=== PATIENT | female | born 1950 | race Caucasian/White ===

== ENCOUNTER 2016-08-29 12:25 | Emergency (ER) | payer MEDICARE, OTHER ==
[2016-08-29] MEDS ORDERED: Sodium Chloride 0.9% 10 ML Syringe FLUSH PRN (12:35)
[2016-08-29] MEDS ORDERED: Acetaminophen 325 MG Tab PO ONE (14:10)
[2016-08-29] MEDS ORDERED: LORazepam 0.5 MG Tab PO ONE (14:10)
--- NOTE | 2016-08-29 15:05 | CR ---
Chest: Portable view of the chest was obtained. Comparison: Previous chest x-ray of 01/03/09. Heart size and mediastinum are normal. Lungs are clear. Bony structures are grossly intact. Impression: 1. Nothing acute is identified on portable chest x-ray. Diagnostic code #1
--- NOTE | 2016-08-29 15:36 | EDM.PDOC ---
ED HISTORY OF PRESENT ILLNESS - General Chief Complaint: Chest Pain Stated Complaint: CHEST PAIN Time Seen by Provider: 08/29/16 12:35 Source of Information: Reports: Patient, RN notes reviewed, Other (spouse) - History of Present Illness INITIAL COMMENTS - FREE TEXT/NARRATIVE: 66 year old female comes in with sharp shooting pains L lateral chest. This started last evening, much more frequent this morning. These only last for a few seconds but occurring quite frequently today, up to several times a minutes. No anterior chest pressure or heaviness. No nauea, vomting, diaphoresis, dizziness, Dyspnea or other unsual sx. Hx of mult. stents. On aspirin and plavix. Admits she is "under a lot of stress", does not exercise regularly. - Related Data Allergies/ADRs: Allergies Allergy/AdvReac Type Severity Reaction Status Date / Time atorvastatin calcium Allergy Joint Pain Verified 08/29/16 12:50 [From Lipitor] fenofibrate nanocrystallized Allergy Joint Pain Verified 08/29/16 12:50 [From Tricor] fenofibrate,micronized Allergy Joint Pain Verified 08/29/16 12:50 [From Tricor] niacin Allergy Respiratory Verified 08/29/16 12:50 [From Niaspan Distress Extended-Release] rosuvastatin calcium Allergy Joint Pain Verified 08/29/16 12:50 [From Crestor] simvastatin [From Zocor] Allergy Joint Pain Verified 08/29/16 12:50 Home Meds: Home Meds Aspirin 81 mg PO DAILY 07/08/15 [History] Levothyroxine [Synthroid] 75 mcg PO DAILY 07/08/15 [History] Sertraline [Zoloft] 75 mg PO DAILY 07/08/15 [History] Clopidogrel [Plavix] 75 mg PO DAILY 08/10/15 [History] Ezetimibe [Zetia] 10 mg PO DAILY 08/10/15 [History] Nitroglycerin 0.4 mg SL ASDIRECTED PRN 08/10/15 [History] Nebivolol [Bystolic] 5 mg PO DAILY 08/29/16 [History] Pravastatin [Pravachol] 40 mg PO DAILY 08/29/16 [History] Past Medical History Cardiovascular History: Reports: CAD, High cholesterol, Hypertension Respiratory History: Reports: None Gastrointestinal History: Reports: None Genitourinary History: Reports: None 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 OB/BYN History: grav 2 para2 Musculoskeletal History: Reports: None Neurological History: Reports: CVA Other Neuro History: 2004 Psychiatric History: Reports: Depression Endocrine/Metabolic History: Reports: Hypothyroidism Hematologic History: Reports: None Immunologic History: Reports: None Dermatologic History: Reports: None - Infectious Disease History Infectious Disease History: Reports: None - Past Surgical History Cardiovascular Surgical History: Reports: Coronary artery stent Other Cardiovascular Surgeries/Procedures: 4 stents Female Surgical History: Reports: Hysterectomy Oncologic Surgical History: Reports: Lumpectomy Social & Family History - Family History Family Medical History: Noncontributory - Tobacco Use Smoking Status *Q: Never Smoker - Caffeine Use Caffeine Use: Reports: Coffee - Recreational Drug Use Recreational Drug Use: No - Living Situation & Occupation Living situation: Reports: with spouse, with family Occupation: retired ED ROS GENERAL - Review of Systems Review Of Systems: See Below Constitutional: Denies: fever, chills, diaphoresis HEENT: Denies: Sinus problem, Throat pain, Vision change Respiratory: Denies: Shortness of Breath, Wheezing, Pleuritic Chest Pain, Cough Cardiovascular: Reports: Chest pain. Denies: Lightheadedness, Palpitations GI/Abdominal: Denies: Abdominal pain, Nausea, Vomiting Musculoskeletal: Denies: neck pain, shoulder pain, arm pain, back pain Skin: Reports: no symptoms Neurological: Reports: No Symptoms ED EXAM, GENERAL - Physical Exam Exam: See Below General Appearance: alert, anxious Eye Exam: bilateral eye: PERRL Nose: normal inspection Throat/Mouth: Normal inspection, Normal oropharynx Head: atraumatic. No: facial swelling Neck: supple, full range of motion, other (no JVD) Respiratory/Chest: no respiratory distress, lungs clear, normal breath sounds Cardiovascular: regular rate, rhythm GI/Abdominal: soft, non tender. No: guarding Back Exam: No: CVA tenderness (L), CVA tenderness (R) Extremities: normal inspection, normal range of motion. No: pedal edema, leg pain Neurological: alert, oriented, no motor/sensory deficits Skin Exam: Warm, Dry, Normal color EKG INTERPRETATION EKG Date: 08/29/16 [place]: normal P-wave: present QRS: other (q waves lead III) Course - Vital Signs Last Recorded V/S: Last Vital Signs Temp 97.8 F 08/29/16 12:33 Pulse 67 08/29/16 12:33 Resp 14 08/29/16 12:33 BP 139/86 08/29/16 12:33 Pulse Ox 98 08/29/16 12:33 - Orders/Labs/Meds Orders: Active Orders 24 hr Category Date Time Status EKG 12 Lead [EKG Documentation Completion] [RC] STAT Care 08/29/16 12:36 Active Peripheral IV Care [RC] . DIRECTED Care 08/29/16 12:36 Active Sodium Chloride 0.9% [Saline Flush] Med 08/29/16 12:35 Active 10 ml FLUSH ASDIRECTED PRN Peripheral IV Insertion Adult [OM.PC] Stat Oth 08/29/16 12:36 Ordered Medication Orders Sodium Chloride (Saline Flush) 10 ml FLUSH ASDIRECTED PRN PRN Reason: Keep Vein Open Last Admin: 08/29/16 13:16 Dose: 10 ml Labs: Laboratory Tests 08/29/16 08/29/16 08/29/16 Range/Units 12:34 12:34 14:23 WBC 8.82 (3.98-10.04) K/mm3 RBC 4.83 (3.98-5.22) M/mm3 Hgb 14.0 (11.2-15.7) gm/L Hct 42.3 (34.1-44.9) % MCV 87.6 (79.4-94.8) fl MCH 29.0 (25.6-32.2) pg MCHC 33.1 (32.2-35.5) g/dl RDW Std Deviation 42.2 (36.4-46.3) fL Plt Count 272 (182-369) K/mm3 MPV 9.1 L (9.4-12.3) fl Neut % (Auto) 52.7 (34.0-71.1) % Lymph % (Auto) 38.3 (19.3-51.7) % [place] % (Auto) 5.2 (4.7-12.5) % Eos % (Auto) 2.9 (0.7-5.8) Baso % (Auto) 0.8 (0.1-1.2) % Neut # 4.64 (1.56-6.13) K/mm3 Lymph # 3.38 (1.18-3.74) K/mm3 [place] # 0.46 H (0.24-0.36) K/mm3 Eos # 0.26 (0.04-0.36) K/mm3 Baso # 0.07 (0.01-0.08) K/mm3 Sodium 140 (136-145) mEq/L Potassium 4.9 (3.5-5.1) mEq/L Chloride 107 (98-107) mEq/L Carbon Dioxide 26 (21-32) mEq/L Anion Gap 11.9 (5-15) BUN 17 (7-18) mg/dL Creatinine 0.9 (0.55-1.02) mg/dL Est Cr Clr Drug Dosing 51.55 mL/min Estimated GFR (MDRD) > 60 (>60) mL/min BUN/Creatinine Ratio 18.9 H (14-18) Glucose 125 H (80-115) mg/dL Calcium 8.6 (8.5-10.1) mg/dL Total Bilirubin 0.3 (0.2-1.0) mg/dL AST 27 (15-37) U/L ALT 30 (14-59) U/L Alkaline Phosphatase 80 (46-116) U/L Troponin I < 0.017 < 0.017 (0.00-0.056) ng/mL Total Protein 7.4 (6.4-8.2) g/dl Albumin 3.6 (3.4-5.0) g/dl Globulin 3.8 gm/dL Albumin/Globulin Ratio 1.0 (1-2) Meds: Medications Generic Name Dose Route Start Last Admin Trade Name Freq PRN Reason Stop Dose Admin Sodium Chloride 10 ml 08/29/16 12:35 08/29/16 13:16 Saline Flush FLUSH 10 ml ASDIRECTED PRN Administration Keep Vein Open Discontinued Medications Generic Name Dose Route Start Last Admin Trade Name Freq PRN Reason Stop Dose Admin Acetaminophen 975 mg 08/29/16 14:10 08/29/16 14:22 Tylenol PO 08/29/16 14:11 975 mg NOW ONE Administration Lorazepam 0.5 mg 08/29/16 14:10 08/29/16 14:23 Ativan PO 08/29/16 14:11 0.5 mg ONETIME ONE Administration - Re-Assessments/Exams Free Text/Narrative Re-Assessment/Exam: 08/29/16 15:49 first trop was neg. Other labs and CXR normal. No ectopy. EKG did not show acute findings. Sx very suggestive for a muscle or nerve etiology. We gave tylenol and ativan and that really helped her to where sx were almost gone at time of discharge. Discharge instr. as documented. Departure - Departure Time of Disposition: 15:36 Disposition: Home, Self-Care 01 Condition: fair Clinical Impression: Atypical chest pain Instructions: Nonspecific Chest Pain Referrals: Rina Park MD [Primary Care Provider] - Forms: ED Department Discharge Additional Instructions: Your heart and lungs have checked out well today. You have been given ativan 0.5 mg and tylenol 975 mg while here in the ED. Continue tylenol or acetaminophen 2 to 3 times daily for the next few days. Ativan 0.25 mg twice daily for the next few days. Follow up with your regular medical provider as needed. Exercise 4 to 5 times per week if possible at least 30 minutes at a time. Consider the walking [place] the [place] at the [facility] which would not be stressful for your knee. Return to ED as needed. - My Orders Last 24 Hours: My Active Orders 08/29/16 12:35 Sodium Chloride 0.9% [Saline Flush] 10 ml FLUSH ASDIRECTED PRN 08/29/16 12:36 EKG 12 Lead [EKG Documentation Completion] [RC] STAT Peripheral IV Care [RC] . DIRECTED Peripheral IV Insertion Adult [OM.PC] Stat - Assessment/Plan Last 24 Hours: My Active Orders 08/29/16 12:35 Sodium Chloride 0.9% [Saline Flush] 10 ml FLUSH ASDIRECTED PRN 08/29/16 12:36 EKG 12 Lead [EKG Documentation Completion] [RC] STAT Peripheral IV Care [RC] . DIRECTED Peripheral IV Insertion Adult [OM.PC] Stat
[2016-08-29 16:02] VITALS: BP 133/92
== END 2016-08-29 15:47 | disposition home or self-care (01) ==
LOC: JD.ED 12:25
DX: R07.89 Other chest pain (principal); I10 Essential (primary) hypertension; E78.00 Pure hypercholesterolemia, unspecified; I25.10 Atherosclerotic heart disease of native coronary artery without angina pectoris; E03.9 Hypothyroidism, unspecified; Z95.5 Presence of coronary angioplasty implant and graft; Z90.710 Acquired absence of both cervix and uterus; Z98.890 Other specified postprocedural states; Z88.8 Allergy status to other drugs, medicaments and biological substances; Z79.82 Long term (current) use of aspirin; Z79.02 Long term (current) use of antithrombotics/antiplatelets; Z79.899 Other long term (current) drug therapy
CPT/HCPCS: 36415; 71010; 80053; 84484; 85025; 93005; 99285; A9270; J7050

== ENCOUNTER 2018-09-19 14:22 | Inpatient (IN) | payer MEDICARE, OTHER ==
--- NOTE | 2018-09-19 14:39 | EDM.PDOC ---
ED HPI GENERAL MEDICAL PROBLEM - General Chief Complaint: Gastrointestinal Problem Stated Complaint: [facility] Time Seen by Provider: 09/19/18 14:36 Source of Information: Reports: Patient History Limitations: Reports: No Limitations - History of Present Illness INITIAL COMMENTS - FREE TEXT/NARRATIVE: 68-year-old female presents to the ED with diarrhea every half hour since 0730 hrs. this morning. Associated with diffuse abdominal cramping pain. Is to stools were definitely bright red in color without any stool. She did look at the first several and therefore not sure if they contained bright red blood as well. He feels lightheaded dizzy and weak. She feels nauseated and hasn't eaten at all today. Patient is on aspirin and Plavix after having a massive myocardial infarction 3 years ago. Patient has had a colonoscopy within the last 5 years and one polyp was resected and found to be noncancerous. He has no history of diverticulitis. No fever or chills. She felt perfectly fine yesterday. Onset: Today Onset Date: 09/19/18 Onset Time: 07:30 Duration: Hour(s): Location: Reports: Other (Passing bright red blood per rectum about every half an hour since 0730 hrs. this morning) Quality: Reports: Other Severity: Moderate (Diffuse abdominal cramping pain) Improves with: Reports: None Worsens with: Reports: None Context: Denies: Activity, Exercise, Lifting, Sick Contact, Trauma, Other Associated Symptoms: Reports: Loss of Appetite, Malaise, Nausea/Vomiting, Weakness. Denies: Confusion, Chest Pain, Cough, cough w sputum, Diaphoresis, Fever/Chills, Headaches, Rash, Seizure, Shortness of Breath, Syncope Treatments LINEN CLERK: Reports: Other (see below) (9) Abdominal Pain Score (Numeric/FACES): 8 - Related Data Allergies Allergy/AdvReac Type Severity Reaction Status Date / Time atorvastatin calcium Allergy Joint Pain Verified 09/19/18 14:34 [From Lipitor] fenofibrate nanocrystallized Allergy Joint Pain Verified 09/19/18 14:34 [From Tricor] fenofibrate,micronized Allergy Joint Pain Verified 09/19/18 14:34 [From Tricor] niacin Allergy Respiratory Verified 09/19/18 14:34 [From Niaspan Distress Extended-Release] rosuvastatin calcium Allergy Joint Pain Verified 09/19/18 14:34 [From Crestor] simvastatin [From Zocor] Allergy Joint Pain Verified 09/19/18 14:34 Home Meds: Home Meds Aspirin 81 mg PO DAILY 07/08/15 [History] Levothyroxine [Synthroid] 75 mcg PO DAILY 07/08/15 [History] Clopidogrel [Plavix] 75 mg PO DAILY 08/10/15 [History] Ezetimibe [Zetia] 10 mg PO DAILY 08/10/15 [History] Nitroglycerin 0.4 mg SL ASDIRECTED PRN 08/10/15 [History] Nebivolol [Bystolic] 5 mg PO DAILY 08/29/16 [History] Pravastatin [Pravachol] 40 mg PO DAILY 08/29/16 [History] Famotidine 20 mg PO DAILY 09/19/18 [History] Pantoprazole [ProTONIX] 40 mg PO DAILY 09/19/18 [History] Past Medical History Cardiovascular History: Reports: CAD, High Cholesterol, Hypertension, Stents (3 stents were placed the first heart attack in the last stent was placed in June 2015 in the right coronary artery. She remains on Plavix and baby aspirin daily.) Respiratory History: Reports: None Gastrointestinal History: Reports: None Genitourinary History: Reports: None ACCORDION TUNER History: Reports: Other ACCORDION TUNER History: grav 2 para2 Musculoskeletal History: Reports: None Neurological History: Reports: CVA Other Neuro History: 2004 Psychiatric History: Reports: Depression Endocrine/Metabolic History: Reports: Hypothyroidism Hematologic History: Reports: None Immunologic History: Reports: None Dermatologic History: Reports: None - Infectious Disease History Infectious Disease History: Reports: None - Past Surgical History Cardiovascular Surgical History: Reports: Coronary Artery Stent Social & Family History - Family History Family Medical History: Noncontributory - Caffeine Use Caffeine Use: Reports: Coffee - Living Situation & Occupation Living situation: Reports: with Spouse, with Family Occupation: Retired ED ROS GENERAL - Review of Systems Review Of Systems: See Below Constitutional: Reports: Chills, Malaise, Weakness, Fatigue, Decreased Appetite (Has not eaten at all today.), Weight Loss HEENT: Reports: No Symptoms Respiratory: Reports: Shortness of Breath. Denies: Wheezing, Pleuritic Chest Pain (Perhaps a little more short of breath than normal), Cough, Sputum, Hemoptysis, Other Cardiovascular: Reports: Blood Pressure Problem, Dyspnea on Exertion, Lightheadedness. Denies: Chest Pain, Claudication, Edema, Orthopnea (Usually runs a bit on the high side) Endocrine: Reports: No Symptoms GI/Abdominal: Reports: Abdominal Pain (Diffuse and dull cramping pain particularly infraumbilical.), Decreased Appetite, Hematochezia, Other (Passing bright red blood per rectum.). Denies: Constipation, Distension, Flatus, Hematemesis : Reports: No Symptoms Musculoskeletal: Reports: Joint Pain Skin: Reports: Bruising (Knees hips low back and neck at times sometimes shoulders as well bruises easily due to being on Plavix and aspirin) Neurological: Reports: Dizziness (Dizziness this morning getting worse) Psychiatric: Reports: No Symptoms ( with every diarrhea stool) Hematologic/Lymphatic: Reports: No Symptoms Immunologic: Reports: No Symptoms ED EXAM, GI/ABD - Physical Exam Exam: See Below Exam Limited By: No Limitations General Appearance: Alert, WD/WN, Mild Distress, Other (Mildly pallid.) Eyes: Right: Normal Appearance (Blood for margins are mildly pallid.) Ears: Normal TMs Throat/Mouth: Normal Inspection, Normal Lips, Normal Oropharynx, Other (Tongue is mildly dry) Head: Atraumatic, Normocephalic Neck: Normal Inspection, Supple, Non-Tender, Full Range of Motion. No: Lymphadenopathy (L), Lymphadenopathy (R) Respiratory/Chest: No Respiratory Distress, Lungs Clear, Normal Breath Sounds, Chest Non-Tender Cardiovascular: Normal Peripheral Pulses, Regular Rate, Rhythm, No Edema, No Gallop, No Murmur, No Rub GI/Abdominal Exam: Guarding (She is tender throughout the left hemiabdomen particularly left lower quadrant with minimal guarding), Tender, Abnormal Bowel Sounds (Bowel sounds are hyperactive throughout.), Other (She has no history of diverticulitis). No: Rigid, Rebound ( lower quadrant) Rectal (Female) Exam: Other (Bone a weightbearing red blood per rectum no stool) Back Exam: Normal Inspection, Full Range of Motion. No: CVA Tenderness (L), CVA Tenderness (R) Extremities: Normal Inspection, Normal Range of Motion, Other (No changes in her knees from arthritis.) Neurological: Alert, Oriented, CN II-XII Intact, Normal Cognition Psychiatric: Normal Affect, Normal Mood Skin Exam: Warm, Dry, Intact, Pallor (Mild pallor) EKG INTERPRETATION EKG Date: 09/19/18 Time: 15:55 Rhythm: Other (Sinus bradycardia at 59/m.) Rate (Beats/Min): 59 [place]: LAD-Left [place] Deviation (-8) P-Wave: Present QRS: Other (Q-wave in lead 3 and near Q-wave in aVF compatible with an old inferior wall myocardial infarction. His decreased voltage throughout the limb leads.) QT: Prolonged (QTC is mildly prolonged.) EKG Interpretation Comments: Abnormal ECG Course - Vital Signs Last Recorded V/S: Last Vital Signs Temp 36.9 C 09/19/18 15:44 Pulse 61 09/19/18 15:44 Resp 16 09/19/18 15:44 BP 138/74 09/19/18 15:44 Pulse Ox 98 09/19/18 15:44 Orthostatic Blood Pressure [ 110/70 Standing] Orthostatic Blood Pressure [ 102/86 Sitting] Orthostatic Blood Pressure [ 139/79 Supine] - Orders/Labs/Meds Orders: Active Orders 24 hr Category Date Time Status EKG Documentation Completion [RC] STAT Care 09/19/18 15:31 Active Orthostatic Vital Signs [RC] ASDIRECTED Care 09/19/18 14:37 Active C DIFFICILE BY PCR W/NAP1 [MOLEC] Stat Lab 09/19/18 18:56 Ordered CULTURE STOOL + SHIGATOX [RM] Stat Lab 09/19/18 18:56 Ordered PATIENT RETYPE [BBK] Routine Lab 09/19/18 15:38 Ordered WBC, STOOL [OP] Stat Lab 09/19/18 18:56 Ordered Sodium Chloride 0.9% [Normal Saline] 1,000 ml Med 09/19/18 14:45 Active IV ASDIRECTED metroNIDAZOLE/Normal Saline [Flagyl 500 MG in NS 100 ML Med 09/19/18 19:01 Ordered ] 500 mg Premix Bag 1 bag IV ONETIME Isolation [COMM] Stat Oth 09/19/18 18:56 Ordered Medication Orders Sodium Chloride (Normal Saline) 1,000 mls @ 200 mls/hr IV ASDIRECTED JOSETTE Last Infusion: 09/19/18 14:53 Dose: 500 mls/hr Admin: 09/19/18 14:53 Dose: 200 mls/hr Labs: Laboratory Tests 09/19/18 09/19/1809/19/19 Range/Units 14:47 14:47 14:47 WBC 12.57 H (3.98-10.04) K/mm3 RBC 5.02 (3.98-5.22) M/mm3 Hgb 14.1 (11.2-15.7) gm/L Hct 43.3 (34.1-44.9) % MCV 86.3 (79.4-94.8) fl MCH 28.1 (25.6-32.2) pg MCHC 32.6 (32.2-35.5) g/dl RDW Std Deviation 42.0 (36.4-46.3) fL Plt Count 316 (182-369) K/mm3 MPV 9.1 L (9.4-12.3) fl Neutrophils % (Manual) 81 H (40-60) % Band Neutrophils % 0 (0-10) % Lymphocytes % (Manual) 17 L (20-40) % Atypical Lymphs % 0 % Monocytes % (Manual) 2 (2-10) % Eosinophils % (Manual) 0 L (0.7-5.8) % Basophils % (Manual) 0 L (0.1-1.2) Platelet Estimate Adequate RBC Morph Comment Normal PT 11.5 (9.5-12.1) SECONDS INR 1.06 APTT (24-31) SECONDS Sodium 139 (136-145) mEq/L Potassium 4.4 (3.5-5.1) mEq/L Chloride 105 (98-107) mEq/L Carbon Dioxide 24 (21-32) mEq/L Anion Gap 14.4 (5-15) BUN 24 H (7-18) mg/dL Creatinine 1.0 (0.55-1.02) mg/dL Est Cr Clr Drug Dosing TNP Estimated GFR (MDRD) 55 (>60) mL/min BUN/Creatinine Ratio 24.0 H (14-18) Glucose 115 (80-115) mg/dL Calcium 9.3 (8.5-10.1) mg/dL Magnesium 2.1 (1.8-2.4) mg/dl Total Bilirubin 0.4 (0.2-1.0) mg/dL AST 19 (15-37) U/L ALT 40 (14-59) U/L Alkaline Phosphatase 94 (46-116) U/L NT-Pro-B Natriuret Pep (0-125) pg/mL Total Protein 7.9 (6.4-8.2) g/dl Albumin 3.8 (3.4-5.0) g/dl Globulin 4.1 gm/dL Albumin/Globulin Ratio 0.9 L (1-2) Amylase 100 (25-115) U/L H. pylori IgG Antibody (NEGATIVE) Blood Type Gel Antibody Screen 09/19/18 09/19/18 09/19/18 Range/Units 14:47 14:47 14:47 WBC (3.98-10.04) K/mm3 RBC (3.98-5.22) M/mm3 Hgb (11.2-15.7) gm/L Hct (34.1-44.9) % MCV (79.4-94.8) fl MCH (25.6-32.2) pg MCHC (32.2-35.5) g/dl RDW Std Deviation (36.4-46.3) fL Plt Count (182-369) K/mm3 MPV (9.4-12.3) fl Neutrophils % (Manual) (40-60) % Band Neutrophils % (0-10) % Lymphocytes % (Manual) (20-40) % Atypical Lymphs % % Monocytes % (Manual) (2-10) % Eosinophils % (Manual) (0.7-5.8) % Basophils % (Manual) (0.1-1.2) Platelet Estimate RBC Morph Comment PT (9.5-12.1) SECONDS INR APTT 24 (24-31) SECONDS Sodium (136-145) mEq/L Potassium (3.5-5.1) mEq/L Chloride (98-107) mEq/L Carbon Dioxide (21-32) mEq/L Anion Gap (5-15) BUN (7-18) mg/dL Creatinine (0.55-1.02) mg/dL Est Cr Clr Drug Dosing Estimated GFR (MDRD) (>60) mL/min BUN/Creatinine Ratio (14-18) Glucose (80-115) mg/dL Calcium (8.5-10.1) mg/dL Magnesium (1.8-2.4) mg/dl Total Bilirubin (0.2-1.0) mg/dL AST (15-37) U/L ALT (14-59) U/L Alkaline Phosphatase (46-116) U/L NT-Pro-B Natriuret Pep 98 (0-125) pg/mL Total Protein (6.4-8.2) g/dl Albumin (3.4-5.0) g/dl Globulin gm/dL Albumin/Globulin Ratio (1-2) Amylase (25-115) U/L H. pylori IgG Antibody (NEGATIVE) Blood Type A POSITIVE Gel Antibody Screen Negative 09/19/18 Range/Units 14:47 WBC (3.98-10.04) K/mm3 RBC (3.98-5.22) M/mm3 Hgb (11.2-15.7) gm/L Hct (34.1-44.9) % MCV (79.4-94.8) fl MCH (25.6-32.2) pg MCHC (32.2-35.5) g/dl RDW Std Deviation (36.4-46.3) fL Plt Count (182-369) K/mm3 MPV (9.4-12.3) fl Neutrophils % (Manual) (40-60) % Band Neutrophils % (0-10) % Lymphocytes % (Manual) (20-40) % Atypical Lymphs % % Monocytes % (Manual) (2-10) % Eosinophils % (Manual) (0.7-5.8) % Basophils % (Manual) (0.1-1.2) Platelet Estimate RBC Morph Comment PT (9.5-12.1) SECONDS INR APTT (24-31) SECONDS Sodium (136-145) mEq/L Potassium (3.5-5.1) mEq/L Chloride (98-107) mEq/L Carbon Dioxide (21-32) mEq/L Anion Gap (5-15) BUN (7-18) mg/dL Creatinine (0.55-1.02) mg/dL Est Cr Clr Drug Dosing Estimated GFR (MDRD) (>60) mL/min BUN/Creatinine Ratio (14-18) Glucose (80-115) mg/dL Calcium (8.5-10.1) mg/dL Magnesium (1.8-2.4) mg/dl Total Bilirubin (0.2-1.0) mg/dL AST (15-37) U/L ALT (14-59) U/L Alkaline Phosphatase (46-116) U/L NT-Pro-B Natriuret Pep (0-125) pg/mL Total Protein (6.4-8.2) g/dl Albumin (3.4-5.0) g/dl Globulin gm/dL Albumin/Globulin Ratio (1-2) Amylase (25-115) U/L H. pylori IgG Antibody Negative (NEGATIVE) Blood Type Gel Antibody Screen Meds: Medications Generic Name Dose Route Start Last Admin Trade Name Freq PRN Reason Stop Dose Admin Sodium Chloride 1,000 mls @ 200 mls/hr 09/19/18 14:45 09/19/18 14:53 Normal Saline IV 500 mls/hr ASDIRECTED JOSETTE Infusion Discontinued Medications Generic Name Dose Route Start Last Admin Trade Name Freq PRN Reason Stop Dose Admin Diatrizoate Meglum/Diatrizoate Sod 120 ml 09/19/18 17:02 09/19/18 18:01 Gastrografin 37% PO 09/19/18 17:03 90 ml ONETIME ONE Administration Hydromorphone HCl 0.5 mg 09/19/18 16:10 09/19/18 16:17 Dilaudid IVPUSH 09/19/18 16:11 0.5 mg ONETIME ONE Administration Iopamidol 100 ml 09/19/18 17:02 09/19/18 18:01 Isovue-370 (76%) IV 09/19/18 17:03 100 ml ONETIME ONE Administration Lidocaine HCl 10 ml 09/19/18 16:11 09/19/18 16:19 Xylocaine 2% Jelly MUCMEM 09/19/18 16:12 10 ml ONETIME ONE Administration Ondansetron HCl 4 mg 09/19/18 15:55 09/19/18 16:16 Zofran IVPUSH 09/19/18 15:56 4 mg ONETIME ONE Administration - Radiology Interpretation Free Text/Narrative:: 68-year-old female presents to the ED with bright red blood per rectum probably every half-hour since 0730 hrs. this morning. She started to feel very lightheaded dizzy and weak. She is orthostatic on exam. She has also pallid on exam. Patient is currently on Plavix and baby aspirin daily because she has extensive history of coronary disease with 4 stents placed in total at 2 different settings. Patient has no chest pain. She showed pictures of blood in the toilet and there is no stool mixed with it. Consent obtained for blood transfusion if so needed. Routine labs to be done as well as an ECG. He is afebrile and therefore I will not CT her abdomen this time. She did have a colonoscopy they believe in 2014 with 1 polyp resected at that time which was benign. - Re-Assessments/Exams Free Text/Narrative Re-Assessment/Exam: 09/19/18 15:37 Labs reveal a slightly elevated white count at 12.57. Differential is 81% neutrophils and no band cells hemoglobin is 14.1 hematocrit is 43.3. MCV is 86.3. Platelet counts 316,000. PT is 11.5 with an INR 1.06. Sodium 139 with potassium of 4.4. Chloride 105 with a bicarbonate 24. B1 is 24 with a creatinine of 1.0. GFR is 55. Glucose is 1:15. Calcium is 9.3. Magnesium is 2.1. Liver function is normal. BNP is 98. Total protein 7.9 with an albumin fraction of 3.8. Amylase is 100 09/19/18 16:16 I discussed the case with Dr. Cm --malt specifications control assistant in [facility] and he feels that CT of the abdomen is in order to rule out diverticulitis or other inflammatory conditions to cause her acute bleeding. I will also go ahead with a sigmoidoscopy to rule out internal hemorrhoid bleeding. Consent will be obtained for rigid sigmoidoscopy. 09/19/18 17:54 rigid sigmoidoscopy performed up to 15 cm and there is dried blood as well as some losing mucus see blood coming from above this level. There is no internal hemorrhoids or fissure to be causing acute rectal bleeding. ECT scan will be done shortly. 09/19/18 18:40 CT of the abdomen and pelvis has been completed with oral and IV contrast. Portion of the visualized lung bases are clear. Moderately large hiatal hernia is appreciated. Contrast is seen within the distal esophagus compatible with reflux. There is fatty infiltration within the liver. No focal abnormality is appreciated within the liver. Spleen appears normal in appearance. Adrenal glands show no nodules. Pancreas appears within normal limits area gallbladder contains no calcified gallstones. Kidneys show symmetric contrast enhancement without any hydronephrosis or mass effect. Aorta shows atherosclerotic calcification which continues into the iliac vessels without any aneurysmal dilatation. No retroperitoneal adenopathy is appreciated. No pelvic mass or adenopathy noted. No free fluid or inflammatory changes identified. There is some bowel wall thickening being seen within portions of the splenic flexure and descending colon no small bowel dilatation is seen. Delayed images show contrast within the distal ureters and within the bladder. Bone window settings were reviewed which shows severe disc space narrowing at L5-S1 with vacuum disc phenomena. Impression is bowel wall thickening within the splenic flexure and within portions of the descending colon compatible with a nonspecific colitis. 09/19/18 19:02 I discussed the case with Dr. Aguilar and he is in agreement with keeping the patient here for treatment of nonspecific colitis which is most likely infectious due to the nature of her pain. There is no sign that she has active diverticulitis. Plan will be to collect stools for culture and sensitivity and 1 for C. difficile infection. I will start her on Flagyl 500 mg IV with a plan to also add Levaquin 750 mg IV after a couple of stools have been collected. Plan will be to place her Plavix on hold for 48 hours or perhaps even 72 hours and also her aspirin until the bleeding comes under control. 09/19/18 19:07 Departure - Departure Time of Disposition: 19:04 Disposition: Admitted As Inpatient 67 Condition: Fair Clinical Impression: Nonspecific colitis, Lower gastrointestinal bleeding - Discharge Information *PRESCRIPTION DRUG MONITORING PROGRAM REVIEWED*: Not Applicable *COPY OF PRESCRIPTION DRUG MONITORING REPORT IN PATIENT CRYSTAL: Not Applicable Referrals: Rina Park MD [Primary Care Provider] - Forms: ED Department Discharge - My Orders Last 24 Hours: My Active Orders 09/19/18 14:37 Orthostatic Vital Signs [RC] ASDIRECTED 09/19/18 14:45 Sodium Chloride 0.9% [Normal Saline] 1,000 ml IV ASDIRECTED 09/19/18 15:31 EKG Documentation Completion [RC] STAT 09/19/18 15:38 PATIENT RETYPE [BBK] Routine 09/19/18 18:56 C DIFFICILE BY PCR W/NAP1 [MOLEC] Stat CULTURE STOOL + SHIGATOX [RM] Stat WBC, STOOL [OP] Stat Isolation [COMM] Stat 09/19/18 19:01 metroNIDAZOLE/Normal Saline [Flagyl 500 MG in NS 100 ML] 500 mg Premix Bag 1 bag IV ONETIME - Assessment/Plan Last 24 Hours: My Active Orders 09/19/18 14:37 Orthostatic Vital Signs [RC] ASDIRECTED 09/19/18 14:45 Sodium Chloride 0.9% [Normal Saline] 1,000 ml IV ASDIRECTED 09/19/18 15:31 EKG Documentation Completion [RC] STAT 09/19/18 15:38 PATIENT RETYPE [BBK] Routine 09/19/18 18:56 C DIFFICILE BY PCR W/NAP1 [MOLEC] Stat CULTURE STOOL + SHIGATOX [RM] Stat WBC, STOOL [OP] Stat Isolation [COMM] Stat 09/19/18 19:01 metroNIDAZOLE/Normal Saline [Flagyl 500 MG in NS 100 ML] 500 mg Premix Bag 1 bag IV ONETIME
[2018-09-19] MEDS: Sodium Chloride 0.9% 1,000 ML IV SCH ×2 (14:53→20:28)
[2018-09-19] MEDS ORDERED: Ondansetron 4 MG/2 ML SDV IVPUSH ONE (15:55)
[2018-09-19] MEDS ORDERED: HYDROmorphone 1 MG/ML Syringe IVPUSH ONE (16:10)
[2018-09-19] MEDS ORDERED: Lidocaine 2% Jelly 10 ML Urojet MUCMEM ONE (16:11)
[2018-09-19] MEDS ORDERED: Iopamidol 755 Mg/ML 200 ML Bottle IV ONE (17:02)
[2018-09-19] MEDS ORDERED: Diatrizoate Meglumine/Diatrizoate Sodium 37% 120 ML Bottle PO ONE (17:02)
--- NOTE | 2018-09-19 18:28 | CT ---
CT abdomen and pelvis Technique: Multiple axial sections were obtained from above the dome of the diaphragm inferiorly through the pubic symphysis. Intravenous and oral contrast was utilized. Delayed images were obtained through the bladder. Comparison: No previous abdominal or pelvic exam. Findings: Small portion of the visualized lung bases are clear. Moderately large hiatal hernia is noted. Contrast is seen within the distal esophagus compatible with reflux. Fatty infiltration is seen within the liver. No focal abnormality is appreciated within the liver. Spleen appears normal in appearance. Adrenal glands show no nodule. Pancreas appears within normal limits. Gallbladder contains no calcified gallstones. Kidneys show symmetric contrast enhancement without hydronephrosis or mass. Aorta shows atherosclerotic calcification which continues into the iliac vessels without aneurysm. No retroperitoneal adenopathy is seen. No pelvic mass or adenopathy is seen. No free fluid or inflammatory change is identified. There is some bowel wall thickening being seen within portions of the splenic flexure and descending colon. No small bowel dilatation is seen. Delayed images shows contrast within the distal ureters and within the bladder. Bone window settings were reviewed which shows severe disc space narrowing at L5-S1 with vacuum disc phenomena. Impression: 1. Bowel wall thickening within the splenic flexure and within portions of the descending colon compatible with a nonspecific colitis. 2. Fatty infiltration within the liver. 3. Moderately large hiatal hernia with gastroesophageal reflux of contrast. 4. Other incidental findings. Diagnostic code #3
[2018-09-19] MEDS ORDERED: metroNIDAZOLE/Normal Saline 500 MG in Premix Bag 1 BAG IV ONE (19:01)
[2018-09-19] MEDS ORDERED: Nitroglycerin 0.4 MG Tab.SL SL PRN (21:13)
[2018-09-19] MEDS ORDERED: hydrALAZINE 20 MG/ML SDV IVPUSH PRN (21:14)
[2018-09-19] MEDS ORDERED: Metoprolol Tartrate 5 MG/5 ML SDV IVPUSH PRN (21:14)
[2018-09-19] MEDS ORDERED: Ondansetron 4 MG/2 ML SDV IV PRN (21:15)
[2018-09-19] MEDS ORDERED: Albuterol/Ipratropium 3.0-0.5 MG/3 ML Neb Soln NEB PRN (21:15)
[2018-09-19] MEDS ORDERED: LORazepam 2 MG/ML SDV IV PRN (21:15)
[2018-09-19] MEDS ORDERED: Acetaminophen 325 MG Tab PO PRN (21:15)
[2018-09-19] MEDS ORDERED: HYDROmorphone 1 MG/ML Syringe IVPUSH PRN (21:15)
[2018-09-19] MEDS ORDERED: Acetaminophen/Butalbital/Caffeine 325-50-40 MG Tab PO PRN (21:19)
[2018-09-19] MEDS ORDERED: Scopolamine 1.5 MG Transdermal Patch TRDERM ONE (21:19)
[2018-09-19] MEDS ORDERED: cefTRIAXone 2 GM in Sodium Chloride 0.9% 100 ML IV ONE (21:24)
[2018-09-19] MEDS ORDERED: Magnesium Sulfate/Water 2 GM in Premix Bag 1 BAG IV ONE (21:26)
[2018-09-19] MEDS ORDERED: Potassium Chloride 20 MEQ Tab.ER PO ONE ×2 (21:27→23:45)
[2018-09-19] MEDS ORDERED: Dicyclomine 10 MG Cap PO PRN (21:30)
[2018-09-19] MEDS: Temazepam 15 MG Cap PO PRN (22:18)
--- NOTE | 2018-09-19 23:11 | PCM.SN ---
- Free Text/Narrative Note: This is a 68 yo white female with past medical hx/o CAD S/p multiple stents on ASA/Plavix, HLD, HTN, GERD, Hx/o CVA, Depression and Hypothyroidism who comes in for evaluation for watery diarrhea w/ bright red blood per rectum that started this morning at about 0730 associated with diffuse abdominal cramps then later developed nausea, lightheadedness, dizziness and generalized weakness. She reports no previous hx/o it in the past. No unusual drink, recent antibiotic use but admits to recent changes in her usual diet. She has been on a low fat diet regimen which she started 3 weeks ago. Her last regular meal was the previous night. She has had Gello, fruit cocktail, Easter bread and turkey burger. She reports no sick contact and no one else got sick in the family. She carries no hx/o hemorrhoids, diverticulosis or intestinal malignancy. She is on ASA and Plavix due to multiple stent placement with 3 years ago as her most recent. Her Hgb level is stable at 14.1. Her C. diff screening and H. Pylori IgG Abs were negative. Her abdominal CT scan shows Moderately large hiatal hernia, fatty liver, and non-specific colitis. On physical examination, she looks clinical and hemodynamically stable. No acute abdomen on physical exam and with good bowel exam. We will continue intravenous antibiotics plus probiotic. She will be npo with ice chips, sips of water plus oral medications for now. D5W 0.9% NS with 40mEq KCl at 125 cc/hr for IV maintenance fluid. Consulted Dr. Reed for further evaluation of recent rectal bleed. Her case was discussed with a GI specialist in [place] and the recommendation was to obtain abdominal CT scan to r/o acute diverticulitis. She was also told her ASA/Plavix will be held for 48 hrs. However I will hold ASA but continue her Plavix as she could be having ischemic colitis since her CRP is pending to support inflammatory/infectious state and her CT scan finding shows non- specific colitis.
[2018-09-20] MEDS: D5%-0.9% NaCl w/ KCl 40 meq 1,000 ML IV SCH ×3 (01:09→17:14)
[2018-09-20] MEDS: metroNIDAZOLE/Normal Saline 500 MG in Premix Bag 1 BAG IV SCH ×3 (03:55→18:36)
[2018-09-20] MEDS: Levothyroxine 75 MCG Tab PO SCH (05:00)
--- NOTE | 2018-09-20 07:37 | PCM.HP ---
H&P History of Present Illness - General Date of Service: 09/20/18 Admit Problem/Dx: Admission Diagnosis/Problem Admission Diagnosis/Problem Gastrointestinal hemorrhage Source of Information: Patient, Old Records, Provider, RN, RN Notes Reviewed History Limitations: Reports: No Limitations - History of Present Illness Initial Comments - Free Text/Narative: Linda Varela is a 68 yo female patient who presented to our ED the afternoon of 09/19/18. [facility] with frequent diarrhea. She reports it started around 7:30 in the morning of his been happening about every half an hour. She also reports abdominal cramping and pain. She reports as the stool continue to occur she did notice bright red blood in color with no actual stool. She pushed feels dizzy and weak along with nausea. She is on aspirin and Plavix after having a massive [place] 3 years ago. Reports she had a colonoscopy with the last 5 years with one polyp found and removed. It was found to be noncancerous. History of diverticulitis. No fever or chills. She reports she felt great the day before. She denies any recent antibiotic use. She started a low fat diet regimen 3 weeks ago. Total EKG is obtained and shows sinus bradycardia at 59 bpm. There is left axis deviation and Q waves in lead 3 with near Q-wave in aVF. Decreased voltage is noted throughout the limb leads along with a mildly prolonged QTC. Temp is obtained and is 36.9 pulse 61. Respirations 16. Blood pressure 130/ 74. Pulse ox 98%. Labs are obtained: WBC is elevated at 12.57. Hemoglobin 14.1. Hematocrit 43.3. She is normocytic. Platelets are 316,000. Neutrophils are elevated at 81%. There is no bandemia. PT is 11.05. INR is 1.06. Sodium is 139. Potassium 4.4. Chloride 105. Carbon dioxide 24. Anion gap 14.4. BUN is 24. Creatinine 1.0. EGFR is 55. Glucose is 1:15. Calcium 9.3. Magnesium 2.1. The 0.4. AST is 19, ALT 40, alkaline phosphatase 94. Protein 7.9. Albumin 3.8. Amylase is 100. APTT is 24. ProBNP is 98. H. pylori is negative. She started on an acid 200 mils an hour. She is also given Dilaudid for pain. ED provider did contact Dr. Cm, assistant paralegal with [facility] in [place] and he requests a CT of the abdomen to rule out diverticulitis or other inflammatory conditions. Sigmoidoscopy is performed in the emergency department by the ED provider. History of advanced up to 16 cm with only dried blood throat sigmoid colon and mucus noted above that level. Colonic burton are coated with dried blood and there does not appear to be any internal hemorrhoids, masses, polyps, or anal fissure. CT scan is obtained and interpreted by Dr. Eastman as "1. Bilateral thickening within the splenic flexure and within portion of the ascending colon compatible with nonspecific colitis. 2. Fatty saturation within the liver. 3. Moderately large hiatal hernia with gastroesophageal reflux of contrast. 4. Other incidental findings." Samples are ordered for C. difficile and she is started on Flagyl 500 mg. Plan a stat Levaquin 750 after couple stools been collected. Plan is also to hold her aspirin until bleeding stops and continue plavix. She carries a history of: CAD, HLD, hypertension, stent placement with 3 stents placed in June 2015 the right coronary artery. CVA in 2004, depression, hypothyroidism, GERD. He is a full code. Her PCP is Dr. Park. She subsequently admitted to the hospital floor inpatient with telemetry. Abdominal Pain Score (Numeric/FACES): 8 - Related Data Allergies/Adverse Reactions: Allergies Allergy/AdvReac Type Severity Reaction Status Date / Time niacin Allergy Respiratory Verified 09/19/18 14:34 [From Niaspan Distress Extended-Release] atorvastatin calcium AdvReac Joint Pain Verified 09/20/18 07:10 [From Lipitor] fenofibrate nanocrystallized AdvReac Joint Pain Verified 09/20/18 07:10 [From Tricor] fenofibrate,micronized AdvReac Joint Pain Verified 09/20/18 07:10 [From Tricor] rosuvastatin calcium AdvReac Joint Pain Verified 09/20/18 07:10 [From Crestor] simvastatin [From Zocor] AdvReac Joint Pain Verified 09/20/18 07:10 Home Medications: Home Meds Aspirin 81 mg PO DAILY 07/08/15 [History] Levothyroxine [Synthroid] 75 mcg PO DAILY 07/08/15 [History] Clopidogrel [Plavix] 75 mg PO DAILY 08/10/15 [History] Ezetimibe [Zetia] 10 mg PO DAILY 08/10/15 [History] Nitroglycerin 0.4 mg SL ASDIRECTED PRN 08/10/15 [History] Nebivolol [Bystolic] 5 mg PO DAILY 08/29/16 [History] Pravastatin [Pravachol] 40 mg PO DAILY 08/29/16 [History] Famotidine 20 mg PO DAILY 09/19/18 [History] Pantoprazole [ProTONIX] 40 mg PO DAILY 09/19/18 [History] Past Medical History HEENT History: Reports: Impaired Vision, Otitis Media Cardiovascular History: Reports: CAD, High Cholesterol, Hypertension, Stents Respiratory History: Reports: None Gastrointestinal History: Reports: None, Other (See Below) Other Gastrointestinal History: colitis Genitourinary History: Reports: None [employer]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 OB/BYN History: grav 2 para2 Musculoskeletal History: Reports: None Neurological History: Reports: CVA Other Neuro History: 2004 Psychiatric History: Reports: Anxiety, Depression Endocrine/Metabolic History: Reports: Hypothyroidism Hematologic History: Reports: None Immunologic History: Reports: None Dermatologic History: Reports: None - Infectious Disease History Infectious Disease History: Reports: Chicken Pox - Past Surgical History Cardiovascular Surgical History: Reports: Coronary Artery Stent Oncologic Surgical History: Reports: Lumpectomy Social & Family History - Family History Family Medical History: Noncontributory - Tobacco Use Smoking Status *Q: Never Smoker Second Hand Smoke Exposure: No - Caffeine Use Caffeine Use: Reports: Coffee - Recreational Drug Use Recreational Drug Use: No - Living Situation & Occupation Living situation: Reports: with Spouse, with Family Occupation: Retired H&P Review of Systems - Review of Systems: Review Of Systems: See Below General: Reports: No Symptoms. Denies: Fever, Chills, Malaise, Weakness, Fatigue HEENT: Reports: No Symptoms. Denies: Headaches, Sore Throat Pulmonary: Reports: No Symptoms. Denies: Shortness of Breath, Wheezing, Pleuritic Chest Pain, Cough, Sputum Cardiovascular: Reports: No Symptoms. Denies: Chest Pain, Palpitations, Orthopnea, Edema Gastrointestinal: Reports: Abdominal Pain (LLQ), Diarrhea, Hematochezia ( improving ), Other (abdominal cramps - improved with bentyl ). Denies: Constipation, Hematemesis, Melena, Nausea, Vomiting Genitourinary: Reports: No Symptoms. Denies: Pain, Incontinence Musculoskeletal: Reports: No Symptoms Skin: Reports: No Symptoms. Denies: Cyanosis Psychiatric: Reports: No Symptoms Neurological: Reports: No Symptoms Hematologic/Lymphatic: Reports: Easy Bruising Immunologic: Reports: No Symptoms Exam - Exam Exam: See Below - Vital Signs Vital Signs: Last Vital Signs Temp 98.4 F 09/19/18 23:51 Pulse 75 09/19/18 23:51 Resp 14 09/19/18 23:51 BP 127/83 09/19/18 23:51 Pulse Ox 92 L 09/19/18 23:51 Orthostatic Blood Pressure [ 110/70 Standing] Orthostatic Blood Pressure [ 102/86 Sitting] Orthostatic Blood Pressure [ 139/79 Supine] Weight: 150 lb 1.6 oz - Exam Quality Assessment: DVT Prophylaxis General: Alert, Oriented, Cooperative HEENT: Conjunctiva Clear, EACs Clear, EOMI, Hearing Intact, Mucosa Moist & [place] , Nares Patent, Normal Nasal Septum Neck: Supple, Trachea Midline Lungs: Clear to Auscultation, Normal Respiratory Effort Cardiovascular: Regular Rate, Regular Rhythm GI/Abdominal Exam: Soft, No Organomegaly, No Distention, Tender (LLQ - mild ), Abnormal Bowel Sounds. No: Guarding (Female) Exam: Deferred Rectal (Female) Exam: Deferred Back Exam: Normal Inspection, Full Range of Motion Extremities: Normal Inspection, Normal Range of Motion, Non-Tender, No Pedal Edema, Normal Capillary Refill Peripheral Pulses: 3+: Radial (L), Radial (R), Dorsalis Pedis (L), Dorsalis Pedis (R) Skin: Warm, Dry, Intact, Ecchymosis (scattered ) Neurological: Cranial Nerves Intact (grossly ) Neuro Extensive - Mental Status: Alert, Oriented x3, Normal Mood/Affect - Patient Data Lab Results Last 24 hrs: Laboratory Results - last 24 hr 09/19/18 09/19/18 09/19/18 Range/Units 14:47 14:47 14:47 WBC 12.57 H (3.98-10.04) K/mm3 RBC 5.02 (3.98-5.22) M/mm3 Hgb 14.1 (11.2-15.7) gm/L Hct 43.3 (34.1-44.9) % MCV 86.3 (79.4-94.8) fl MCH 28.1 (25.6-32.2) pg MCHC 32.6 (32.2-35.5) g/dl RDW Std Deviation 42.0 (36.4-46.3) fL Plt Count 316 (182-369) K/mm3 MPV 9.1 L (9.4-12.3) fl Neut % (Auto) (34.0-71.1) % Lymph % (Auto) (19.3-51.7) % Cass % (Auto) (4.7-12.5) % Eos % (Auto) (0.7-5.8) Baso % (Auto) (0.1-1.2) % Neut # (Auto) (1.56-6.13) K/mm3 Lymph # (Auto) (1.18-3.74) K/mm3 Cass # (Auto) (0.24-0.36) K/mm3 Eos # (Auto) (0.04-0.36) K/mm3 Baso # (Auto) (0.01-0.08) K/mm3 Neutrophils % (Manual) 81 H (40-60) % Band Neutrophils % 0 (0-10) % Lymphocytes % (Manual) 17 L (20-40) % Atypical Lymphs % 0 % Monocytes % (Manual) 2 (2-10) % Eosinophils % (Manual) 0 L (0.7-5.8) % Basophils % (Manual) 0 L (0.1-1.2) Platelet Estimate Adequate RBC Morph Comment Normal PT 11.5 (9.5-12.1) SECONDS INR 1.06 APTT (24-31) SECONDS Sodium 139 (136-145) mEq/L Potassium 4.4 (3.5-5.1) mEq/L Chloride 105 (98-107) mEq/L Carbon Dioxide 24 (21-32) mEq/L Anion Gap 14.4 (5-15) BUN 24 H (7-18) mg/dL Creatinine 1.0 (0.55-1.02) mg/dL Est Cr Clr Drug Dosing TNP Estimated GFR (MDRD) 55 (>60) mL/min BUN/Creatinine Ratio 24.0 H (14-18) Glucose 115 (80-115) mg/dL Calcium 9.3 (8.5-10.1) mg/dL Magnesium 2.1 (1.8-2.4) mg/dl Total Bilirubin 0.4 (0.2-1.0) mg/dL AST 19 (15-37) U/L ALT 40 (14-59) U/L Alkaline Phosphatase 94 (46-116) U/L C-Reactive Protein (<1.0) mg/dL NT-Pro-B Natriuret Pep (0-125) pg/mL Total Protein 7.9 (6.4-8.2) g/dl Albumin 3.8 (3.4-5.0) g/dl Globulin 4.1 gm/dL Albumin/Globulin Ratio 0.9 L (1-2) Amylase 100 (25-115) U/L C.difficile 027-NAP1-B1 C. difficile Tox (PCR) H. pylori IgG Antibody (NEGATIVE) Blood Type Gel Antibody Screen 09/19/18 09/19/18 09/19/18 Range/Units 14:47 14:47 14:47 WBC (3.98-10.04) K/mm3 RBC (3.98-5.22) M/mm3 Hgb (11.2-15.7) gm/L Hct (34.1-44.9) % MCV (79.4-94.8) fl MCH (25.6-32.2) pg MCHC (32.2-35.5) g/dl RDW Std Deviation (36.4-46.3) fL Plt Count (182-369) K/mm3 MPV (9.4-12.3) fl Neut % (Auto) (34.0-71.1) % Lymph % (Auto) (19.3-51.7) % Cass % (Auto) (4.7-12.5) % Eos % (Auto) (0.7-5.8) Baso % (Auto) (0.1-1.2) % Neut # (Auto) (1.56-6.13) K/mm3 Lymph # (Auto) (1.18-3.74) K/mm3 Cass # (Auto) (0.24-0.36) K/mm3 Eos # (Auto) (0.04-0.36) K/mm3 Baso # (Auto) (0.01-0.08) K/mm3 Neutrophils % (Manual) (40-60) % Band Neutrophils % (0-10) % Lymphocytes % (Manual) (20-40) % Atypical Lymphs % % Monocytes % (Manual) (2-10) % Eosinophils % (Manual) (0.7-5.8) % Basophils % (Manual) (0.1-1.2) Platelet Estimate RBC Morph Comment PT (9.5-12.1) SECONDS INR APTT 24 (24-31) SECONDS Sodium (136-145) mEq/L Potassium (3.5-5.1) mEq/L Chloride (98-107) mEq/L Carbon Dioxide (21-32) mEq/L Anion Gap (5-15) BUN (7-18) mg/dL Creatinine (0.55-1.02) mg/dL Est Cr Clr Drug Dosing Estimated GFR (MDRD) (>60) mL/min BUN/Creatinine Ratio (14-18) Glucose (80-115) mg/dL Calcium (8.5-10.1) mg/dL Magnesium (1.8-2.4) mg/dl Total Bilirubin (0.2-1.0) mg/dL AST (15-37) U/L ALT (14-59) U/L Alkaline Phosphatase (46-116) U/L C-Reactive Protein (<1.0) mg/dL NT-Pro-B Natriuret Pep 98 (0-125) pg/mL Total Protein (6.4-8.2) g/dl Albumin (3.4-5.0) g/dl Globulin gm/dL Albumin/Globulin Ratio (1-2) Amylase (25-115) U/L C.difficile 027-NAP1-B1 C. difficile Tox (PCR) H. pylori IgG Antibody (NEGATIVE) Blood Type A POSITIVE Gel Antibody Screen Negative 09/19/18 09/19/18 09/19/18 Range/Units 14:47 14:47 20:45 WBC (3.98-10.04) K/mm3 RBC (3.98-5.22) M/mm3 Hgb (11.2-15.7) gm/L Hct (34.1-44.9) % MCV (79.4-94.8) fl MCH (25.6-32.2) pg MCHC (32.2-35.5) g/dl RDW Std Deviation (36.4-46.3) fL Plt Count (182-369) K/mm3 MPV (9.4-12.3) fl Neut % (Auto) (34.0-71.1) % Lymph % (Auto) (19.3-51.7) % Cass % (Auto) (4.7-12.5) % Eos % (Auto) (0.7-5.8) Baso % (Auto) (0.1-1.2) % Neut # (Auto) (1.56-6.13) K/mm3 Lymph # (Auto) (1.18-3.74) K/mm3 Cass # (Auto) (0.24-0.36) K/mm3 Eos # (Auto) (0.04-0.36) K/mm3 Baso # (Auto) (0.01-0.08) K/mm3 Neutrophils % (Manual) (40-60) % Band Neutrophils % (0-10) % Lymphocytes % (Manual) (20-40) % Atypical Lymphs % % Monocytes % (Manual) (2-10) % Eosinophils % (Manual) (0.7-5.8) % Basophils % (Manual) (0.1-1.2) Platelet Estimate RBC Morph Comment PT (9.5-12.1) SECONDS INR APTT (24-31) SECONDS Sodium (136-145) mEq/L Potassium (3.5-5.1) mEq/L Chloride (98-107) mEq/L Carbon Dioxide (21-32) mEq/L Anion Gap (5-15) BUN (7-18) mg/dL Creatinine (0.55-1.02) mg/dL Est Cr Clr Drug Dosing Estimated GFR (MDRD) (>60) mL/min BUN/Creatinine Ratio (14-18) Glucose (80-115) mg/dL Calcium (8.5-10.1) mg/dL Magnesium (1.8-2.4) mg/dl Total Bilirubin (0.2-1.0) mg/dL AST (15-37) U/L ALT (14-59) U/L Alkaline Phosphatase (46-116) U/L C-Reactive Protein 0.3 (<1.0) mg/dL NT-Pro-B Natriuret Pep (0-125) pg/mL Total Protein (6.4-8.2) g/dl Albumin (3.4-5.0) g/dl Globulin gm/dL Albumin/Globulin Ratio (1-2) Amylase (25-115) U/L C.difficile 027-NAP1-B1 Presumptive negative C. difficile Tox (PCR) Negative H. pylori IgG Antibody Negative (NEGATIVE) Blood Type Gel Antibody Screen 09/20/18 09/20/18 Range/Units 06:20 06:20 WBC 13.25 H (3.98-10.04) K/mm3 RBC 4.34 (3.98-5.22) M/mm3 Hgb 12.2 (11.2-15.7) gm/L Hct 38.0 (34.1-44.9) % MCV 87.6 (79.4-94.8) fl MCH 28.1 (25.6-32.2) pg MCHC 32.1 L (32.2-35.5) g/dl RDW Std Deviation 43.0 (36.4-46.3) fL Plt Count 257 (182-369) K/mm3 MPV 9.2 L (9.4-12.3) fl Neut % (Auto) 62.0 (34.0-71.1) % Lymph % (Auto) 28.7 (19.3-51.7) % Cass % (Auto) 7.2 (4.7-12.5) % Eos % (Auto) 1.4 (0.7-5.8) Baso % (Auto) 0.5 (0.1-1.2) % Neut # (Auto) 8.23 H (1.56-6.13) K/mm3 Lymph # (Auto) 3.80 H (1.18-3.74) K/mm3 Cass # (Auto) 0.96 H (0.24-0.36) K/mm3 Eos # (Auto) 0.18 (0.04-0.36) K/mm3 Baso # (Auto) 0.06 (0.01-0.08) K/mm3 Neutrophils % (Manual) (40-60) % Band Neutrophils % (0-10) % Lymphocytes % (Manual) (20-40) % Atypical Lymphs % % Monocytes % (Manual) (2-10) % Eosinophils % (Manual) (0.7-5.8) % Basophils % (Manual) (0.1-1.2) Platelet Estimate RBC Morph Comment PT (9.5-12.1) SECONDS INR APTT (24-31) SECONDS Sodium 140 (136-145) mEq/L Potassium 4.6 (3.5-5.1) mEq/L Chloride 110 H (98-107) mEq/L Carbon Dioxide 23 (21-32) mEq/L Anion Gap 11.6 (5-15) BUN 12 (7-18) mg/dL Creatinine 1.0 (0.55-1.02) mg/dL Est Cr Clr Drug Dosing 45.16 Estimated GFR (MDRD) 55 (>60) mL/min BUN/Creatinine Ratio 12.0 L (14-18) Glucose 131 H (80-115) mg/dL Calcium 8.0 L (8.5-10.1) mg/dL Magnesium 2.3 (1.8-2.4) mg/dl Total Bilirubin (0.2-1.0) mg/dL AST (15-37) U/L ALT (14-59) U/L Alkaline Phosphatase (46-116) U/L C-Reactive Protein 1.5 H* (<1.0) mg/dL NT-Pro-B Natriuret Pep (0-125) pg/mL Total Protein (6.4-8.2) g/dl Albumin (3.4-5.0) g/dl Globulin gm/dL Albumin/Globulin Ratio (1-2) Amylase (25-115) U/L C.difficile 027-NAP1-B1 C. difficile Tox (PCR) H. pylori IgG Antibody (NEGATIVE) Blood Type Gel Antibody Screen Result Diagrams: 09/20/18 06:20 09/20/18 06:20 [facility] Results Last 24 hrs: Microbiology 09/19/18 20:45 Stool for WBCs - Final Stool / Feces - Problem List (1) Lower gastrointestinal bleeding SNOMED Code(s): 91215752 ICD Code: K92.2 - GASTROINTESTINAL HEMORRHAGE, UNSPECIFIED Status: Acute Priority: High Current Visit: Yes (2) Nonspecific colitis SNOMED Code(s): 203694185 ICD Code: K52.9 - NONINFECTIVE GASTROENTERITIS AND COLITIS, UNSPECIFIED Status: Acute Priority: High Current Visit: Yes Problem List Initiated/Reviewed/Updated: Yes Orders Last 24hrs: Active Orders 24 hr Category Date Time Status Admission Status [Patient Status] [ADT] Routine ADT 09/19/18 19:08 Active Antiembolic Devices [RC] PER UNIT ROUTINE Care 09/19/18 21:17 Active Height and Weight [RC] 04 Care 09/19/18 21:15 Active Intake and Output [RC] 04,16 Care 09/19/18 21:15 Active Notify Provider Consults [RC] ASDIRECTED Care 09/19/18 21:18 Active Orthostatic Vital Signs [RC] ASDIRECTED Care 09/19/18 14:37 Active Oxygen Therapy [RC] PRN Care 09/19/18 21:15 Active RT Aerosol Therapy [RC] ASDIRECTED Care 09/19/18 21:17 Active Up ad [place] [RC] ASDIRECTED Care 09/19/18 21:15 Active VTE/DVT Education [RC] PER UNIT ROUTINE Care 09/19/18 21:15 Active Vital Signs [RC] Q4HR Care 09/19/18 21:15 Active Consult to Case Management/Blower Operator [CONS] Cons 09/19/18 21:15 Active Routine Consult to Physician [CONS] Routine Cons 09/19/18 21:15 Active Consult to Spiritual Care [CONS] Routine Cons 09/19/18 21:15 Active Nothing per Oral Now Diet [DIET] Diet 09/19/18 Dinner Active BASIC METABOLIC PANEL,BMP [CHEM] AM Lab 09/21/18 05:11 Ordered BASIC METABOLIC PANEL,BMP [CHEM] AM Lab 09/22/18 05:11 Ordered BASIC METABOLIC PANEL,BMP [CHEM] AM Lab 09/23/18 05:11 Ordered C-REACTIVE PROTEIN [CHEM] AM Lab 09/21/18 05:11 Ordered C-REACTIVE PROTEIN [CHEM] AM Lab 09/22/18 05:11 Ordered C-REACTIVE PROTEIN [CHEM] AM Lab 09/23/18 05:11 Ordered CBC WITH AUTO DIFF [HEME] AM Lab 09/21/18 05:11 Ordered CBC WITH AUTO DIFF [HEME] AM Lab 09/22/18 05:11 Ordered CBC WITH AUTO DIFF [HEME] AM Lab 09/23/18 05:11 Ordered CULTURE BLOOD [BC] Stat Lab 09/19/18 21:45 Received CULTURE BLOOD [BC] Stat Lab 09/19/18 21:50 Received CULTURE STOOL + SHIGATOX [RM] Stat Lab 09/19/18 20:45 Received FECAL LACTOFERRIN [MREF] Stat Lab 09/19/18 20:45 Received MAGNESIUM [CHEM] AM Lab 09/21/18 05:11 Ordered MAGNESIUM [CHEM] AM Lab 09/22/18 05:11 Ordered MAGNESIUM [CHEM] AM Lab 09/23/18 05:11 Ordered Acetaminophen [Tylenol] Med 09/19/18 21:15 Active 650 mg PO Q4H PRN Acetaminophen/Butalbital/Caff [Fioricet 325-50-40 MG] Med 09/19/18 21:19 Active 1 tab PO Q6H PRN Albuterol/Ipratropium [DuoNeb 3.0-0.5 MG/3 ML] Med 09/19/18 21:15 Active 3 ml NEB Q4H PRN Carvedilol [Coreg] Med 09/20/18 09:00 Active 3.125 mg PO BID Clopidogrel [Plavix] Med 09/20/18 09:00 Active 75 mg PO DAILY D5%-0.9% NaCl w/ KCl 40 meq [D5 NS with 40 mEq KCl] 1, Med 09/19/18 21:30 Active 000 ml IV ASDIRECTED Dicyclomine [Bentyl] Med 09/19/18 21:30 Active 10 mg PO QIDACANDBED PRN Ezetimibe [Zetia] Med 09/20/18 09:00 Active 10 mg PO DAILY Famotidine [Pepcid] Med 09/20/18 09:00 Active 20 mg PO BID HYDROmorphone [Dilaudid] Med 09/19/18 21:15 Active 0.5 mg IVPUSH Q2H PRN LORazepam [Ativan] Med 09/19/18 21:15 Active 1 mg IV Q6H PRN Levothyroxine Med 09/20/18 06:00 Active 75 mcg PO ACBREAKFAST Metoprolol Tartrate [Lopressor] Med 09/19/18 21:14 Active 5 mg IVPUSH Q4H PRN Nitroglycerin [Nitrostat] Med 09/19/18 21:13 Active 0.4 mg SL ASDIRECTED PRN Ondansetron [Zofran] Med 09/19/18 21:15 Active 4 mg IV Q6H PRN Pharmacy to Dose - Magnesium R [Pharmacy to Dose - Med 09/19/18 21:15 Active Magnesium Replacement] 0 dose .XX ASDIRECTED PRN Pharmacy to Dose - Potassium R [Pharmacy to Dose - Med 09/19/18 21:15 Active Potassium Replacement] 0 dose .XX ASDIRECTED PRN Saccharomyces Boulardii [Florastor] Med 09/20/18 09:00 Active 250 mg PO BID Temazepam [Restoril] Med 09/19/18 21:15 Active 15 mg PO BEDTIME PRN cefTRIAXone [Rocephin] 1 gm Med 09/20/18 09:00 Active Sodium Chloride 0.9% [Normal Saline] 100 ml IV Q24H hydrALAZINE [Apresoline] Med 09/19/18 21:14 Active 20 mg IVPUSH Q4H PRN metroNIDAZOLE/Normal Saline [Flagyl 500 MG in NS 100 ML Med 09/20/18 03:00 Active ] 500 mg Premix Bag 1 bag IV Q8H Blood Culture x2 Reflex Set [OM.PC] Stat Oth 09/19/18 21:15 Ordered Isolation [COMM] Stat Oth 09/19/18 18:56 Ordered Sequential Compression Device [OM.PC] Per Unit Routine Oth 09/19/18 21:15 Ordered Resuscitation Status Routine Resus Stat 09/19/18 20:13 Ordered Medication Orders Acetaminophen (Tylenol) 650 mg PO Q4H PRN PRN Reason: Pain (Mild 1-3)/fever Acetaminophen/Butalbital/Caffeine (Fioricet 325-50-40 Mg) 1 tab PO Q6H PRN PRN Reason: Headache Albuterol/Ipratropium (Duoneb 3.0-0.5 Mg/3 Ml) 3 ml NEB Q4H PRN PRN Reason: Shortness Of Breath/wheezing Carvedilol (Coreg) 3.125 mg PO BID J[facility]ETTE Clopidogrel Bisulfate (Plavix) 75 mg PO DAILY J[facility]TE Dicyclomine HCl (Bentyl) 10 mg PO QIDACANDBED PRN PRN Reason: Abdominal Cramps Last Admin: 09/19/18 22:19 Dose: 10 mg Ezetimibe (Zetia) 10 mg PO DAILY JOSETTE Famotidine (Pepcid) 20 mg PO BID [facility]TE Hydralazine HCl (Apresoline) 20 mg IVPUSH Q4H PRN PRN Reason: Hypertension Hydromorphone HCl (Dilaudid) 0.5 mg IVPUSH Q2H PRN PRN Reason: Pain (severe 7-10) Ceftriaxone Sodium 1 gm/ (Sodium Chloride) 100 mls @ 200 mls/hr IV Q24H [facility] Metronidazole 500 mg/ Premix 100 mls @ 100 mls/hr IV Q8H [facility] Last Admin: 09/20/18 03:55 Dose: 100 mls/hr Potassium Chloride/Dextrose/Sod Cl (D5 Ns With 40 Meq Kcl) 1,000 mls @ 125 mls/ hr IV ASDIRECTED [facility] Last Admin: 09/20/18 01:09 Dose: 125 mls/hr Levothyroxine Sodium (Levothyroxine) 75 mcg PO ACBREAKFAST [facility] Last Admin: 09/20/18 05:00 Dose: 75 mcg Lorazepam (Ativan) 1 mg IV Q6H PRN PRN Reason: Anxiety Magnesium Sulfate (Pharmacy To Dose - Magnesium Replacement) 0 dose .XX ASDIRECTED PRN PRN Reason: RX TO WATCH MAG Metoprolol Tartrate (Lopressor) 5 mg IVPUSH Q4H PRN PRN Reason: Tachycardia Nitroglycerin (Nitrostat) 0.4 mg SL ASDIRECTED PRN PRN Reason: Chest Pain Ondansetron HCl (Zofran) 4 mg IV Q6H PRN PRN Reason: Nausea/Vomiting Potassium Chloride (Pharmacy To Dose - Potassium Replacement) 0 dose .XX ASDIRECTED PRN PRN Reason: RX TO WATCH K Saccharomyces Boulardii (Florastor) 250 mg PO BID [facility] Temazepam (Restoril) 15 mg PO BEDTIME PRN PRN Reason: Sleep Last Admin: 09/19/18 22:18 Dose: 15 mg Assessment/Plan Comment:: I/P: Acute GI bleed -Reports abdominal pain and diarrhea transitioning to BRBPR beginning at 0730 on 09/19/18 -Hx/o [place] and on daily ASA and plavix -Reports last colonoscopy around 2014 with single non-cancerous polyp -No hx/o hemorrhoids, diverticulosis or intestinal malignancy -Hgb 14.1 -Hct 43.3 -PT 11.5; INR 1.06; APTT 24 -CT scan in ED on 09/19/18: * 1. Bowel wall thickening within the splenic flexure and within portions of the descending colon compatible with nonspecific colitis. * 2. Fatty infiltration within the liver. * 3. Moderately large hiatal hernia with gastroesophageal reflux of contrast * 4. Other incidental findings. -Sigmoidoscopy performed in ED * Advanced up to 16 cm * Only dried blood and some mucous above this level * No apparent internal hemorrhoids, masses, polyps, or anal fissures -NPO -> advance to clear liquid diet -Dr. Reed, general surgeon consulted Colitis -Reports abdominal pain and diarrhea as above -CT results as above -NPO for now -WBC 12.57-->13.25 -CRP 0.3-->1.5 -Metronidazole Q8 started in ED - continue -Rocephin 1gm Q24 -Probiotic -Sigmoidoscopy performed in ED as above -Dr. Reed consult as above -Concerns for ischemic colitis -Recommends continuing plavix -H. pylori negative -C. diff negative -Few WBCs in stool study -Stool culture pending -Fecal lactoferrin pending -Blood cultures pending -Bentyl for abdominal cramps -Contact isolation Chronic: CAD HLD HTN Hx/o 3 stents placed Last [place] June 2015 with stent in right coronary artery CVA Depression GERD Hypothyroidism Plan: Admit to medical floor on telemetry CM/SW consult Spiritual care consult Other orders as indicated above Routine AM labs Home medications as ordered She is independently ambulatory so hold off PT/OT for now DVT prophylaxis: SCDs; GI Prophylaxis: Home pepcid Code status: full code; PCP: Dr. Park
[2018-09-20] MEDS ORDERED: HYDROmorphone 0.5 MG/0.5 ML Syringe IVPUSH PRN (08:07)
[2018-09-20] MEDS ORDERED: cefTRIAXone 1 GM in Sodium Chloride 0.9% 100 ML IV SCH (09:00)
[2018-09-20] MEDS: Famotidine 20 MG Tab PO SCH ×2 (09:48→21:43)
[2018-09-20] MEDS: Saccharomyces Boulardii (Probiotic) 250 MG Cap PO SCH ×2 (09:48→21:43)
[2018-09-20] MEDS: Ezetimibe 10 MG Tab PO SCH (09:49)
[2018-09-20] MEDS: Carvedilol 3.125 MG Tab PO SCH ×2 (09:49→21:43)
--- NOTE | 2018-09-20 10:20 | PCM.CONSN ---
- General Info Date of Service: 09/20/18 - Patient Data Vitals - Most Recent: Last Vital Signs Temp 98.4 F 09/20/18 08:12 Pulse 61 09/20/18 09:49 Resp 12 09/20/18 08:12 BP 117/66 09/20/18 09:49 Pulse Ox 95 09/20/18 08:12 Orthostatic Blood Pressure [ 110/70 Standing] Orthostatic Blood Pressure [ 102/86 Sitting] Orthostatic Blood Pressure [ 139/79 Supine] Weight - Most Recent: 68.084 kg I&O - Last 24 Hours: Intake & Output 09/19/18 09/20/18 09/20/18 23:59 07:59 15:59 Intake Total 1595 Output Total 200 Balance 1395 Lab Results Last 24 Hours: Laboratory Results - last 24 hr 09/19/18 09/19/18 09/19/18 Range/Units 14:47 14:47 14:47 WBC 12.57 H (3.98-10.04) K/mm3 RBC 5.02 (3.98-5.22) M/mm3 Hgb 14.1 (11.2-15.7) gm/L Hct 43.3 (34.1-44.9) % MCV 86.3 (79.4-94.8) fl MCH 28.1 (25.6-32.2) pg MCHC 32.6 (32.2-35.5) g/dl RDW Std Deviation 42.0 (36.4-46.3) fL Plt Count 316 (182-369) K/mm3 MPV 9.1 L (9.4-12.3) fl Neut % (Auto) (34.0-71.1) % Lymph % (Auto) (19.3-51.7) % Hernando % (Auto) (4.7-12.5) % Eos % (Auto) (0.7-5.8) Baso % (Auto) (0.1-1.2) % Neut # (Auto) (1.56-6.13) K/mm3 Lymph # (Auto) (1.18-3.74) K/mm3 Hernando # (Auto) (0.24-0.36) K/mm3 Eos # (Auto) (0.04-0.36) K/mm3 Baso # (Auto) (0.01-0.08) K/mm3 Neutrophils % (Manual) 81 H (40-60) % Band Neutrophils % 0 (0-10) % Lymphocytes % (Manual) 17 L (20-40) % Atypical Lymphs % 0 % Monocytes % (Manual) 2 (2-10) % Eosinophils % (Manual) 0 L (0.7-5.8) % Basophils % (Manual) 0 L (0.1-1.2) Platelet Estimate Adequate RBC Morph Comment Normal PT 11.5 (9.5-12.1) SECONDS INR 1.06 APTT (24-31) SECONDS Sodium 139 (136-145) mEq/L Potassium 4.4 (3.5-5.1) mEq/L Chloride 105 (98-107) mEq/L Carbon Dioxide 24 (21-32) mEq/L Anion Gap 14.4 (5-15) BUN 24 H (7-18) mg/dL Creatinine 1.0 (0.55-1.02) mg/dL Est Cr Clr Drug Dosing TNP Estimated GFR (MDRD) 55 (>60) mL/min BUN/Creatinine Ratio 24.0 H (14-18) Glucose 115 (80-115) mg/dL Calcium 9.3 (8.5-10.1) mg/dL Magnesium 2.1 (1.8-2.4) mg/dl Total Bilirubin 0.4 (0.2-1.0) mg/dL AST 19 (15-37) U/L ALT 40 (14-59) U/L Alkaline Phosphatase 94 (46-116) U/L C-Reactive Protein (<1.0) mg/dL NT-Pro-B Natriuret Pep (0-125) pg/mL Total Protein 7.9 (6.4-8.2) g/dl Albumin 3.8 (3.4-5.0) g/dl Globulin 4.1 gm/dL Albumin/Globulin Ratio 0.9 L (1-2) Amylase 100 (25-115) U/L C.difficile 027-NAP1-B1 C. difficile Tox (PCR) H. pylori IgG Antibody (NEGATIVE) Blood Type Gel Antibody Screen 09/19/18 09/19/18 09/19/18 Range/Units 14:47 14:47 14:47 WBC (3.98-10.04) K/mm3 RBC (3.98-5.22) M/mm3 Hgb (11.2-15.7) gm/L Hct (34.1-44.9) % MCV (79.4-94.8) fl MCH (25.6-32.2) pg MCHC (32.2-35.5) g/dl RDW Std Deviation (36.4-46.3) fL Plt Count (182-369) K/mm3 MPV (9.4-12.3) fl Neut % (Auto) (34.0-71.1) % Lymph % (Auto) (19.3-51.7) % Hernando % (Auto) (4.7-12.5) % Eos % (Auto) (0.7-5.8) Baso % (Auto) (0.1-1.2) % Neut # (Auto) (1.56-6.13) K/mm3 Lymph # (Auto) (1.18-3.74) K/mm3 Hernando # (Auto) (0.24-0.36) K/mm3 Eos # (Auto) (0.04-0.36) K/mm3 Baso # (Auto) (0.01-0.08) K/mm3 Neutrophils % (Manual) (40-60) % Band Neutrophils % (0-10) % Lymphocytes % (Manual) (20-40) % Atypical Lymphs % % Monocytes % (Manual) (2-10) % Eosinophils % (Manual) (0.7-5.8) % Basophils % (Manual) (0.1-1.2) Platelet Estimate RBC Morph Comment PT (9.5-12.1) SECONDS INR APTT 24 (24-31) SECONDS Sodium (136-145) mEq/L Potassium (3.5-5.1) mEq/L Chloride (98-107) mEq/L Carbon Dioxide (21-32) mEq/L Anion Gap (5-15) BUN (7-18) mg/dL Creatinine (0.55-1.02) mg/dL Est Cr Clr Drug Dosing Estimated GFR (MDRD) (>60) mL/min BUN/Creatinine Ratio (14-18) Glucose (80-115) mg/dL Calcium (8.5-10.1) mg/dL Magnesium (1.8-2.4) mg/dl Total Bilirubin (0.2-1.0) mg/dL AST (15-37) U/L ALT (14-59) U/L Alkaline Phosphatase (46-116) U/L C-Reactive Protein (<1.0) mg/dL NT-Pro-B Natriuret Pep 98 (0-125) pg/mL Total Protein (6.4-8.2) g/dl Albumin (3.4-5.0) g/dl Globulin gm/dL Albumin/Globulin Ratio (1-2) Amylase (25-115) U/L C.difficile 027-NAP1-B1 C. difficile Tox (PCR) H. pylori IgG Antibody (NEGATIVE) Blood Type A POSITIVE Gel Antibody Screen Negative 09/19/18 09/19/18 09/19/18 Range/Units 14:47 14:47 20:45 WBC (3.98-10.04) K/mm3 RBC (3.98-5.22) M/mm3 Hgb (11.2-15.7) gm/L Hct (34.1-44.9) % MCV (79.4-94.8) fl MCH (25.6-32.2) pg MCHC (32.2-35.5) g/dl RDW Std Deviation (36.4-46.3) fL Plt Count (182-369) K/mm3 MPV (9.4-12.3) fl Neut % (Auto) (34.0-71.1) % Lymph % (Auto) (19.3-51.7) % Hernando % (Auto) (4.7-12.5) % Eos % (Auto) (0.7-5.8) Baso % (Auto) (0.1-1.2) % Neut # (Auto) (1.56-6.13) K/mm3 Lymph # (Auto) (1.18-3.74) K/mm3 Hernando # (Auto) (0.24-0.36) K/mm3 Eos # (Auto) (0.04-0.36) K/mm3 Baso # (Auto) (0.01-0.08) K/mm3 Neutrophils % (Manual) (40-60) % Band Neutrophils % (0-10) % Lymphocytes % (Manual) (20-40) % Atypical Lymphs % % Monocytes % (Manual) (2-10) % Eosinophils % (Manual) (0.7-5.8) % Basophils % (Manual) (0.1-1.2) Platelet Estimate RBC Morph Comment PT (9.5-12.1) SECONDS INR APTT (24-31) SECONDS Sodium (136-145) mEq/L Potassium (3.5-5.1) mEq/L Chloride (98-107) mEq/L Carbon Dioxide (21-32) mEq/L Anion Gap (5-15) BUN (7-18) mg/dL Creatinine (0.55-1.02) mg/dL Est Cr Clr Drug Dosing Estimated GFR (MDRD) (>60) mL/min BUN/Creatinine Ratio (14-18) Glucose (80-115) mg/dL Calcium (8.5-10.1) mg/dL Magnesium (1.8-2.4) mg/dl Total Bilirubin (0.2-1.0) mg/dL AST (15-37) U/L ALT (14-59) U/L Alkaline Phosphatase (46-116) U/L C-Reactive Protein 0.3 (<1.0) mg/dL NT-Pro-B Natriuret Pep (0-125) pg/mL Total Protein (6.4-8.2) g/dl Albumin (3.4-5.0) g/dl Globulin gm/dL Albumin/Globulin Ratio (1-2) Amylase (25-115) U/L C.difficile 027-NAP1-B1 Presumptive negative C. difficile Tox (PCR) Negative H. pylori IgG Antibody Negative (NEGATIVE) Blood Type Gel Antibody Screen 09/20/18 09/20/18 Range/Units 06:20 06:20 WBC 13.25 H (3.98-10.04) K/mm3 RBC 4.34 (3.98-5.22) M/mm3 Hgb 12.2 (11.2-15.7) gm/L Hct 38.0 (34.1-44.9) % MCV 87.6 (79.4-94.8) fl MCH 28.1 (25.6-32.2) pg MCHC 32.1 L (32.2-35.5) g/dl RDW Std Deviation 43.0 (36.4-46.3) fL Plt Count 257 (182-369) K/mm3 MPV 9.2 L (9.4-12.3) fl Neut % (Auto) 62.0 (34.0-71.1) % Lymph % (Auto) 28.7 (19.3-51.7) % Hernando % (Auto) 7.2 (4.7-12.5) % Eos % (Auto) 1.4 (0.7-5.8) Baso % (Auto) 0.5 (0.1-1.2) % Neut # (Auto) 8.23 H (1.56-6.13) K/mm3 Lymph # (Auto) 3.80 H (1.18-3.74) K/mm3 Hernando # (Auto) 0.96 H (0.24-0.36) K/mm3 Eos # (Auto) 0.18 (0.04-0.36) K/mm3 Baso # (Auto) 0.06 (0.01-0.08) K/mm3 Neutrophils % (Manual) (40-60) % Band Neutrophils % (0-10) % Lymphocytes % (Manual) (20-40) % Atypical Lymphs % % Monocytes % (Manual) (2-10) % Eosinophils % (Manual) (0.7-5.8) % Basophils % (Manual) (0.1-1.2) Platelet Estimate RBC Morph Comment PT (9.5-12.1) SECONDS INR APTT (24-31) SECONDS Sodium 140 (136-145) mEq/L Potassium 4.6 (3.5-5.1) mEq/L Chloride 110 H (98-107) mEq/L Carbon Dioxide 23 (21-32) mEq/L Anion Gap 11.6 (5-15) BUN 12 (7-18) mg/dL Creatinine 1.0 (0.55-1.02) mg/dL Est Cr Clr Drug Dosing 45.16 Estimated GFR (MDRD) 55 (>60) mL/min BUN/Creatinine Ratio 12.0 L (14-18) Glucose 131 H (80-115) mg/dL Calcium 8.0 L (8.5-10.1) mg/dL Magnesium 2.3 (1.8-2.4) mg/dl Total Bilirubin (0.2-1.0) mg/dL AST (15-37) U/L ALT (14-59) U/L Alkaline Phosphatase (46-116) U/L C-Reactive Protein 1.5 H* (<1.0) mg/dL NT-Pro-B Natriuret Pep (0-125) pg/mL Total Protein (6.4-8.2) g/dl Albumin (3.4-5.0) g/dl Globulin gm/dL Albumin/Globulin Ratio (1-2) Amylase (25-115) U/L C.difficile 027-NAP1-B1 C. difficile Tox (PCR) H. pylori IgG Antibody (NEGATIVE) Blood Type Gel Antibody Screen [facility] Results Last 24 Hours: Microbiology 09/19/18 20:45 Stool for WBCs - Final Stool / Feces Med Orders - Current: Current Medications Acetaminophen (Tylenol) 650 mg PO Q4H PRN PRN Reason: Pain (Mild 1-3)/fever Acetaminophen/Butalbital/Caffeine (Fioricet 325-50-40 Mg) 1 tab PO Q6H PRN PRN Reason: Headache Albuterol/Ipratropium (Duoneb 3.0-0.5 Mg/3 Ml) 3 ml NEB Q4H PRN PRN Reason: Shortness Of Breath/wheezing Carvedilol (Coreg) 3.125 mg PO BID [facility] Last Admin: 09/20/18 09:49 Dose: 3.125 mg Clopidogrel Bisulfate (Plavix) 75 mg PO DAILY [facility] Dicyclomine HCl (Bentyl) 10 mg PO QIDACANDBED PRN PRN Reason: Abdominal Cramps Last Admin: 09/19/18 22:19 Dose: 10 mg Ezetimibe (Zetia) 10 mg PO DAILY [facility] Last Admin: 09/20/18 09:49 Dose: 10 mg Famotidine (Pepcid) 20 mg PO BID [facility] Last Admin: 09/20/18 09:48 Dose: 20 mg Hydralazine HCl (Apresoline) 20 mg IVPUSH Q4H PRN PRN Reason: Hypertension Hydromorphone HCl (Dilaudid) 0.5 mg IVPUSH Q2H PRN PRN Reason: Pain (severe 7-10) Metronidazole 500 mg/ Premix 100 mls @ 100 mls/hr IV Q8H [facility] Last Admin: 09/20/18 03:55 Dose: 100 mls/hr Potassium Chloride/Dextrose/Sod Cl (D5 Ns With 40 Meq Kcl) 1,000 mls @ 125 mls/ hr IV ASDIRECTED [facility] Last Admin: 09/20/18 09:48 Dose: 125 mls/hr Ceftriaxone Sodium 1 gm/ (Sodium Chloride) 100 mls @ 200 mls/hr IV Q24H [facility] Levothyroxine Sodium (Levothyroxine) 75 mcg PO ACBREAKFAST [facility] Last Admin: 09/20/18 05:00 Dose: 75 mcg Lorazepam (Ativan) 1 mg IV Q6H PRN PRN Reason: Anxiety Magnesium Sulfate (Pharmacy To Dose - Magnesium Replacement) 0 dose .XX ASDIRECTED PRN PRN Reason: RX TO WATCH MAG Metoprolol Tartrate (Lopressor) 5 mg IVPUSH Q4H PRN PRN Reason: Tachycardia Nitroglycerin (Nitrostat) 0.4 mg SL ASDIRECTED PRN PRN Reason: Chest Pain Ondansetron HCl (Zofran) 4 mg IV Q6H PRN PRN Reason: Nausea/Vomiting Potassium Chloride (Pharmacy To Dose - Potassium Replacement) 0 dose .XX ASDIRECTED PRN PRN Reason: RX TO WATCH K Saccharomyces Boulardii (Florastor) 250 mg PO BID [facility] Last Admin: 09/20/18 09:48 Dose: 250 mg Temazepam (Restoril) 15 mg PO BEDTIME PRN PRN Reason: Sleep Last Admin: 09/19/18 22:18 Dose: 15 mg Discontinued Medications Diatrizoate Meglum/Diatrizoate Sod (Gastrografin 37%) 120 ml PO ONETIME ONE Stop: 09/19/18 17:03 Last Admin: 09/19/18 18:01 Dose: 90 ml Hydromorphone HCl (Dilaudid) 0.5 mg IVPUSH ONETIME ONE Stop: 09/19/18 16:11 Last Admin: 09/19/18 16:17 Dose: 0.5 mg Hydromorphone HCl (Dilaudid) 0.5 mg IVPUSH Q2H PRN PRN Reason: Pain (severe 7-10) Sodium Chloride (Normal Saline) 1,000 mls [facility] Admin: 09/19/18 20:28 Dose: 200 mls/hr Metronidazole 500 mg/ Premix 100 mls @ 100 mls/hr IV ONETIME ONE Stop: 09/19/18 20:00 Last Admin: 09/19/18 19:10 Dose: 100 mls/hr Ceftriaxone Sodium 2 gm/ (Sodium Chloride) 100 mls @ 200 mls/hr IV ONETIME ONE Stop: 09/19/18 21:53 Last Admin: 09/19/18 23:01 Dose: 200 mls/hr Magnesium Sulfate 2 gm/ Premix 50 mls @ 25 mls/hr IV ONETIME ONE Stop: 09/19/18 23:25 Last Admin: 09/19/18 22:20 Dose: 25 mls/hr Iopamidol (Isovue-370 (76%)) 100 ml IV ONETIME ONE Stop: 09/19/18 17:03 Last Admin: 09/19/18 18:01 Dose: 100 ml Lidocaine HCl (Xylocaine 2% Jelly) 10 ml MUCMEM ONETIME ONE Stop: 09/19/18 16:12 Last Admin: 09/19/18 16:19 Dose: 10 ml Ondansetron HCl (Zofran) 4 mg IVPUSH ONETIME ONE Stop: 09/19/18 15:56 Last Admin: 09/19/18 16:16 Dose: 4 mg Potassium Chloride (Klor-Con M20) 40 meq PO ONETIME ONE Stop: 09/19/18 23:46 Last Admin: 09/19/18 23:49 Dose: 40 meq Scopolamine (Transderm-Scop) 1.5 mg TRDERM Q72H ONE Stop: 09/19/18 21:20 Last Admin: 09/19/18 22:19 Dose: 1.5 mg Consult PN Assessment/Plan Procedures: Procedures ASSAY OF TROPONIN QUANT (08/29/16) CARDIAC REHAB/MONITOR (09/23/15) CARDIOVASCULAR STRESS TEST (05/04/14) CHEST X-RAY 1 VIEW FRONTAL (08/29/16) COMPLETE CBC W/AUTO DIFF WBC (08/29/16) COMPREHEN METABOLIC PANEL (08/29/16) CREATINE MB FRACTION (07/08/15) ELECTROCARDIOGRAM TRACING (08/29/16) EMERGENCY DEPT VISIT (08/29/16) HT MUSCLE IMAGE SPECT MULT (05/04/14) PROTHROMBIN TIME (07/08/15) ROUTINE VENIPUNCTURE (08/29/16) THER/PROPH/DIAG IV INF INIT (07/08/15) THROMBOPLASTIN TIME PARTIAL (07/08/15) TX/PRO/DX INJ NEW DRUG ADDON (07/08/15) TX/PRO/DX INJ SAME DRUG CUSTOMER SOLUTIONS ARCHITECT (07/08/15) Problem List Initiated/Reviewed/Updated: Yes My Orders Last 24 Hours: consult dictated suspect ischemic colitis ROMULO
[2018-09-20] MEDS: Dicyclomine 10 MG Cap PO PRN ×2 (11:07→17:16)
[2018-09-20] MEDS: Clopidogrel 75 MG Tab PO SCH ×2 (11:07→11:11)
[2018-09-20] MEDS: LORazepam 0.5 MG Tab PO PRN (20:01)
[2018-09-20] MEDS: Temazepam 15 MG Cap PO PRN (21:44)
[2018-09-20] MEDS: cefTRIAXone 1 GM in Sodium Chloride 0.9% 100 ML IV SCH (21:52)
[2018-09-21] MEDS: D5%-0.9% NaCl w/ KCl 40 meq 1,000 ML IV SCH ×3 (00:59→17:09)
[2018-09-21] MEDS: metroNIDAZOLE/Normal Saline 500 MG in Premix Bag 1 BAG IV SCH ×3 (02:29→19:07)
[2018-09-21] MEDS: Levothyroxine 75 MCG Tab PO SCH (05:54)
[2018-09-21] MEDS: Carvedilol 3.125 MG Tab PO SCH ×2 (09:59→20:07)
[2018-09-21] MEDS: Saccharomyces Boulardii (Probiotic) 250 MG Cap PO SCH ×2 (09:59→20:08)
[2018-09-21] MEDS: Sertraline 50 MG Tab PO SCH (10:01)
[2018-09-21] MEDS: Clopidogrel 75 MG Tab PO SCH (10:01)
[2018-09-21] MEDS: Famotidine 20 MG Tab PO SCH ×2 (10:01→20:08)
[2018-09-21] MEDS: Ezetimibe 10 MG Tab PO SCH (10:01)
--- NOTE | 2018-09-21 13:21 | PCM.PN ---
- General Info Date of Service: 09/21/18 Subjective Update: Decreased loose stool Functional Status: Reports: Pain Controlled, Tolerating Diet, Ambulating, Urinating - Review of Systems General: Reports: No Symptoms HEENT: Reports: No Symptoms Pulmonary: Reports: No Symptoms Cardiovascular: Reports: No Symptoms Gastrointestinal: Reports: Other (decreased loose stool) Genitourinary: Reports: No Symptoms Musculoskeletal: Reports: No Symptoms Skin: Reports: No Symptoms Neurological: Reports: No Symptoms Psychiatric: Reports: No Symptoms - Patient Data Vitals - Most Recent: Last Vital Signs Temp 36.6 C 09/21/18 11:58 Pulse 58 L 09/21/18 11:58 Resp 16 09/21/18 11:58 BP 118/52 L 09/21/18 11:58 Pulse Ox 98 09/21/18 11:58 Orthostatic Blood Pressure [ 110/70 Standing] Orthostatic Blood Pressure [ 102/86 Sitting] Orthostatic Blood Pressure [ 139/79 Supine] Weight - Most Recent: 68.356 kg I&O - Last 24 Hours: Intake & Output 09/20/18 09/21/18 09/21/18 22:59 06:59 14:59 Intake Total 2433 2100 120 Output Total 1200 500 Balance 1233 1600 120 Lab Results Last 24 Hours: Laboratory Results - last 24 hr 09/21/18 09/21/18 Range/Units 05:50 05:50 WBC 10.94 H (3.98-10.04) K/mm3 RBC 3.80 L (3.98-5.22) M/mm3 Hgb 10.7 L (11.2-15.7) gm/L Hct 33.7 L (34.1-44.9) % MCV 88.7 (79.4-94.8) fl MCH 28.2 (25.6-32.2) pg MCHC 31.8 L (32.2-35.5) g/dl RDW Std Deviation 44.3 (36.4-46.3) fL Plt Count 231 (182-369) K/mm3 MPV 9.7 (9.4-12.3) fl Neut % (Auto) 59.8 (34.0-71.1) % Lymph % (Auto) 30.8 (19.3-51.7) % Webb % (Auto) 6.4 (4.7-12.5) % Eos % (Auto) 2.3 (0.7-5.8) Baso % (Auto) 0.5 (0.1-1.2) % Neut # (Auto) 6.54 H (1.56-6.13) K/mm3 Lymph # (Auto) 3.37 (1.18-3.74) K/mm3 Webb # (Auto) 0.70 H (0.24-0.36) K/mm3 Eos # (Auto) 0.25 (0.04-0.36) K/mm3 Baso # (Auto) 0.06 (0.01-0.08) K/mm3 Sodium 142 (136-145) mEq/L Potassium 4.6 (3.5-5.1) mEq/L Chloride 111 H (98-107) mEq/L Carbon Dioxide 21 (21-32) mEq/L Anion Gap 14.6 (5-15) BUN 4 L (7-18) mg/dL Creatinine 0.9 (0.55-1.02) mg/dL Est Cr Clr Drug Dosing 50.18 mL/min Estimated GFR (MDRD) > 60 (>60) mL/min BUN/Creatinine Ratio 4.4 L (14-18) Glucose 120 H (80-115) mg/dL Calcium 7.9 L (8.5-10.1) mg/dL Magnesium 1.8 (1.8-2.4) mg/dl C-Reactive Protein 1.9 H* (<1.0) mg/dL [facility] Results Last 24 Hours: Microbiology 09/19/18 20:45 Stool Culture - Preliminary Stool / Feces 09/19/18 20:45 Stool Lactoferrin - Final Stool / Feces 09/19/18 21:50 Aerobic Blood Culture - Preliminary Blood - Venous - Lab Draw NO GROWTH AFTER 1 DAY Anaerobic Blood Culture - Preliminary NO GROWTH AFTER 1 DAY 09/19/18 21:45 Aerobic Blood Culture - Preliminary Blood - Venous NO GROWTH AFTER 1 DAY Anaerobic Blood Culture - Preliminary NO GROWTH AFTER 1 DAY Med Orders - Current: Current Medications Acetaminophen (Tylenol) 650 mg PO Q4H PRN PRN Reason: Pain (Mild 1-3)/fever Acetaminophen/Butalbital/Caffeine (Fioricet 325-50-40 Mg) 1 tab PO Q6H PRN PRN Reason: Headache Albuterol/Ipratropium (Duoneb 3.0-0.5 Mg/3 Ml) 3 ml NEB Q4H PRN PRN Reason: Shortness Of Breath/wheezing Carvedilol (Coreg) 3.125 mg PO BID [facility] Last Admin: 09/21/18 09:59 Dose: 3.125 mg Clopidogrel Bisulfate (Plavix) 75 mg PO DAILY [facility] Last Admin: 09/21/18 10:01 Dose: 75 mg Dicyclomine HCl (Bentyl) 10 mg PO Q6H PRN PRN Reason: Abdominal Cramps Last Admin: 09/20/18 17:16 Dose: 10 mg Ezetimibe (Zetia) 10 mg PO DAILY [facility] Last Admin: 09/21/18 10:01 Dose: 10 mg Famotidine (Pepcid) 20 mg PO BID [facility] Last Admin: 09/21/18 10:01 Dose: 20 mg Hydralazine HCl (Apresoline) 20 mg IVPUSH Q4H PRN PRN Reason: Hypertension Hydromorphone HCl (Dilaudid) 0.5 mg IVPUSH Q2H PRN PRN Reason: Pain (severe 7-10) Metronidazole 500 mg/ Premix 100 mls @ 100 mls/hr IV Q8H [facility] Last Admin: 09/21/18 11:01 Dose: 100 mls/hr Potassium Chloride/Dextrose/Sod Cl (D5 Ns With 40 Meq Kcl) 1,000 mls @ 125 mls/ hr IV ASDIRECTED [facility] Last Admin: 09/21/18 09:27 Dose: 125 mls/hr Ceftriaxone Sodium 1 gm/ (Sodium Chloride) 100 mls @ 200 mls/hr IV Q24H [facility] Last Admin: 09/20/18 21:52 Dose: 200 mls/hr Levothyroxine Sodium (Levothyroxine) 75 mcg PO ACBREAKFAST [facility] Last Admin: 09/21/18 05:54 Dose: 75 mcg Lorazepam (Ativan) 1 mg IV Q6H PRN PRN Reason: Anxiety Lorazepam (Ativan) 0.5 mg PO BID PRN PRN Reason: ANXIETY Last Admin: 09/20/18 20:01 Dose: 0.5 mg Metoprolol Tartrate (Lopressor) 5 mg IVPUSH Q4H PRN PRN Reason: Tachycardia Nitroglycerin (Nitrostat) 0.4 mg SL ASDIRECTED PRN PRN Reason: Chest Pain Ondansetron HCl (Zofran) 4 mg IV Q6H PRN PRN Reason: Nausea/Vomiting Saccharomyces Boulardii (Florastor) 250 mg PO BID [facility] Last Admin: 09/21/18 09:59 Dose: 250 mg Sertraline HCl (Zoloft) 50 mg PO DAILY [facility] Last Admin: 09/21/18 10:01 Dose: 50 mg Temazepam (Restoril) 15 mg PO BEDTIME PRN PRN Reason: Sleep Last Admin: 09/20/18 21:44 Dose: 15 mg Discontinued Medications Diatrizoate Meglum/Diatrizoate Sod (Gastrografin 37%) 120 ml PO ONETIME ONE Stop: 09/19/18 17:03 Last Admin: 09/19/18 18:01 Dose: 90 ml Dicyclomine HCl (Bentyl) 10 mg PO QIDACANDBED PRN PRN Reason: Abdominal Cramps Last Admin: 09/19/18 22:19 Dose: 10 mg Hydromorphone HCl (Dilaudid) 0.5 mg IVPUSH ONETIME ONE Stop: 09/19/18 16:11 Last Admin: 09/19/18 16:17 Dose: 0.5 mg Hydromorphone HCl (Dilaudid) 0.5 mg IVPUSH Q2H PRN PRN Reason: Pain (severe 7-10) Sodium Chloride (Normal Saline) 1,000 mls @ 200 mls/hr IV ASDIRECTED [facility] Last Admin: 09/19/18 20:28 Dose: 200 mls/hr Metronidazole 500 mg/ Premix 100 mls @ 100 mls/hr IV ONETIME ONE Stop: 09/19/18 20:00 Last Admin: 09/19/18 19:10 Dose: 100 mls/hr Ceftriaxone Sodium 2 gm/ (Sodium Chloride) 100 mls @ 200 mls/hr IV ONETIME ONE Stop: 09/19/18 21:53 Last Admin: 09/19/18 23:01 Dose: 200 mls/hr Magnesium Sulfate 2 gm/ Premix 50 mls @ 25 mls/hr IV ONETIME ONE Stop: 09/19/18 23:25 Last Admin: 09/19/18 22:20 Dose: 25 mls/hr Iopamidol (Isovue-370 (76%)) 100 ml IV ONETIME ONE Stop: 09/19/18 17:03 Last Admin: 09/19/18 18:01 Dose: 100 ml Lidocaine HCl (Xylocaine 2% Jelly) 10 ml MUCMEM ONETIME ONE Stop: 09/19/18 16:12 Last Admin: 09/19/18 16:19 Dose: 10 ml Magnesium Sulfate (Pharmacy To Dose - Magnesium Replacement) 0 dose .XX ASDIRECTED PRN PRN Reason: RX TO WATCH MAG Ondansetron HCl (Zofran) 4 mg IVPUSH ONETIME ONE Stop: 09/19/18 15:56 Last Admin: 09/19/18 16:16 Dose: 4 mg Potassium Chloride (Pharmacy To Dose - Potassium Replacement) 0 dose .XX ASDIRECTED PRN PRN Reason: RX TO WATCH K Potassium Chloride (Klor-Con M20) 40 meq PO ONETIME ONE Stop: 09/19/18 23:46 Last Admin: 09/19/18 23:49 Dose: 40 meq Scopolamine (Transderm-Scop) 1.5 mg TRDERM Q72H ONE Stop: 09/19/18 21:20 Last Admin: 09/19/18 22:19 Dose: 1.5 mg - Exam Quality Assessment: DVT Prophylaxis General: Alert, Oriented, Cooperative, No Acute Distress HEENT: Pupils Equal, Pupils Reactive, EOMI Neck: Trachea Midline, No JVD Lungs: Normal Respiratory Effort Cardiovascular: Regular Rate, Regular Rhythm GI/Abdominal Exam: Normal Bowel Sounds, Soft, Non-Tender, No Organomegaly, No Distention (Female) Exam: Deferred Back Exam: Normal Inspection Extremities: Normal Inspection, Non-Tender, Normal Capillary Refill Skin: Warm Neurological: No New Focal Deficit Psy/Mental Status: Alert, Normal Affect, Normal Mood - Problem List Review Problem List Initiated/Reviewed/Updated: Yes - Plan Plan:: I/P: Acute GI bleed -Reports abdominal pain and diarrhea transitioning to BRBPR beginning at 0730 on 09/19/18 -Hx/o MA and on daily ASA and plavix -Reports last colonoscopy around 2014 with single non-cancerous polyp -No hx/o hemorrhoids, diverticulosis or intestinal malignancy -Hgb 14.1 -Hct 43.3 -PT 11.5; INR 1.06; APTT 24 -CT scan in ED on 09/19/18: * 1. Bowel wall thickening within the splenic flexure and within portions of the descending colon compatible with nonspecific colitis. * 2. Fatty infiltration within the liver. * 3. Moderately large hiatal hernia with gastroesophageal reflux of contrast * 4. Other incidental findings. -Sigmoidoscopy performed in ED * Advanced up to 16 cm * Only dried blood and some mucous above this level * No apparent internal hemorrhoids, masses, polyps, or anal fissures -NPO -> advance to clear liquid diet -Dr. Reed, general surgeon consulted Colitis -Reports abdominal pain and diarrhea as above -CT results as above -NPO for now -WBC 12.57-->13.25 -CRP 0.3-->1.5 -Metronidazole Q8 started in ED - continue -Rocephin 1gm Q24 -Probiotic -Sigmoidoscopy performed in ED as above -Dr. Reed consult as above -Concerns for ischemic colitis -Recommends continuing plavix -H. pylori negative -C. diff negative -Few WBCs in stool study -Stool culture pending -Fecal lactoferrin pending -Blood cultures pending -Bentyl for abdominal cramps -Contact isolation Chronic: CAD HLD HTN Hx/o 3 stents placed Last MA June 2015 with stent in right coronary artery CVA Depression GERD Hypothyroidism Plan: Admit to medical floor on telemetry CM/SW consult Spiritual care consult Other orders as indicated above Routine AM labs Home medications as ordered She is independently ambulatory so hold off PT/OT for now DVT prophylaxis: SCDs; GI Prophylaxis: Home pepcid Code status: full code; PCP: Dr. Xavier SNOW 24-48 hours, monitor diet; will need GI/Gen surg follow up for elective colonoscopy
[2018-09-21] MEDS ORDERED: Magnesium Sulfate/Water 2 GM in Premix Bag 1 BAG IV ONE (15:32)
[2018-09-21] MEDS: Dicyclomine 10 MG Cap PO PRN (16:26)
[2018-09-21] MEDS: LORazepam 0.5 MG Tab PO PRN (19:59)
[2018-09-21] MEDS: Temazepam 15 MG Cap PO PRN (21:27)
[2018-09-21] MEDS: cefTRIAXone 1 GM in Sodium Chloride 0.9% 100 ML IV SCH (21:27)
[2018-09-22] MEDS: D5%-0.9% NaCl w/ KCl 40 meq 1,000 ML IV SCH (01:33)
[2018-09-22] MEDS: metroNIDAZOLE/Normal Saline 500 MG in Premix Bag 1 BAG IV SCH ×2 (04:34→10:03)
[2018-09-22] MEDS: Levothyroxine 75 MCG Tab PO SCH (05:02)
[2018-09-22] MEDS: Famotidine 20 MG Tab PO SCH (09:55)
[2018-09-22] MEDS: Sertraline 50 MG Tab PO SCH (09:55)
[2018-09-22] MEDS: Clopidogrel 75 MG Tab PO SCH (09:55)
[2018-09-22] MEDS: Carvedilol 3.125 MG Tab PO SCH (09:55)
[2018-09-22] MEDS: Saccharomyces Boulardii (Probiotic) 250 MG Cap PO SCH (09:55)
[2018-09-22] MEDS: Ezetimibe 10 MG Tab PO SCH (09:55)
--- NOTE | 2018-09-22 12:33 | PCM.DCSUM1 ---
Discharge Summary - Hospital Course HPI Initial Comments: Linda Varela is a 68 yo female patient who presented to our ED the afternoon of 09/19/18. [facility] with frequent diarrhea. She reports it started around 7:30 in the morning of his been happening about every half an hour. She also reports abdominal cramping and pain. She reports as the stool continue to occur she did notice bright red blood in color with no actual stool. She pushed feels dizzy and weak along with nausea. She is on aspirin and Plavix after having a massive AZ 3 years ago. Reports she had a colonoscopy with the last 5 years with one polyp found and removed. It was found to be noncancerous. History of diverticulitis. No fever or chills. She reports she felt great the day before. She denies any recent antibiotic use. She started a low fat diet regimen 3 weeks ago. Total EKG is obtained and shows sinus bradycardia at 59 bpm. There is left axis deviation and Q waves in lead 3 with near Q-wave in aVF. Decreased voltage is noted throughout the limb leads along with a mildly prolonged QTC. Temp is obtained and is 36.9 pulse 61. Respirations 16. Blood pressure 130/ 74. Pulse ox 98%. Labs are obtained: WBC is elevated at 12.57. Hemoglobin 14.1. Hematocrit 43.3. She is normocytic. Platelets are 316,000. Neutrophils are elevated at 81%. There is no bandemia. PT is 11.05. INR is 1.06. Sodium is 139. Potassium 4.4. Chloride 105. Carbon dioxide 24. Anion gap 14.4. BUN is 24. Creatinine 1.0. EGFR is 55. Glucose is 1:15. Calcium 9.3. Magnesium 2.1. The 0.4. AST is 19, ALT 40, alkaline phosphatase 94. Protein 7.9. Albumin 3.8. Amylase is 100. APTT is 24. ProBNP is 98. H. pylori is negative. She started on an acid 200 mils an hour. She is also given Dilaudid for pain. ED provider did contact Dr. Cm, fur cutter with [facility] in [place] and he requests a CT of the abdomen to rule out diverticulitis or other inflammatory conditions. Sigmoidoscopy is performed in the emergency department by the ED provider. History of advanced up to 16 cm with only dried blood throat sigmoid colon and mucus noted above that level. Colonic burton are coated with dried blood and there does not appear to be any internal hemorrhoids, masses, polyps, or anal fissure. CT scan is obtained and interpreted by Dr. Eastman as "1. Bilateral thickening within the splenic flexure and within portion of the ascending colon compatible with nonspecific colitis. 2. Fatty saturation within the liver. 3. Moderately large hiatal hernia with gastroesophageal reflux of contrast. 4. Other incidental findings." Samples are ordered for C. difficile and she is started on Flagyl 500 mg. Plan a stat Levaquin 750 after couple stools been collected. Plan is also to hold her aspirin until bleeding stops and continue plavix. She carries a history of: CAD, HLD, hypertension, stent placement with 3 stents placed in June 2015 the right coronary artery. CVA in 2004, depression, hypothyroidism, GERD. He is a full code. Her PCP is Dr. Park. She subsequently admitted to the hospital floor inpatient with telemetry. Diagnosis: Stroke: No - Discharge Data Discharge Date: 09/22/18 Discharge Disposition: Home, Self-Care 01 Condition: Good - Patient Summary/Data Consults: Consultations 09/19/18 21:15 Consult to Case Management/Mirror Maker [CONS] Routine Consult to Physician [CONS] Routine Consult to Spiritual Care [CONS] Routine - Patient Instructions Diet: Heart Healthy Diet Activity: As Tolerated Driving: May Drive Today Showering/Bathing: May Shower Notify Provider of: Fever, Increased Pain, Nausea and/or Vomiting - Discharge Plan *PRESCRIPTION DRUG MONITORING PROGRAM REVIEWED*: Not Applicable *COPY OF PRESCRIPTION DRUG MONITORING REPORT IN PATIENT CRYSTAL: Not Applicable Prescriptions/Med Rec: Dicyclomine [Bentyl] 10 mg PO TID PRN #10 cap PRN Reason: Abdominal Cramps metroNIDAZOLE [Flagyl] 500 mg PO Q8H #6 tablet Saccharomyces Boulardii [Florastor] 250 mg PO BID #30 cap Home Medications: Home Meds Levothyroxine [Synthroid] 75 mcg PO DAILY 07/08/15 [History] Clopidogrel [Plavix] 75 mg PO DAILY 08/10/15 [History] Ezetimibe [Zetia] 10 mg PO DAILY 08/10/15 [History] Nitroglycerin 0.4 mg SL ASDIRECTED PRN 08/10/15 [History] Nebivolol [Bystolic] 5 mg PO DAILY 08/29/16 [History] Pravastatin [Pravachol] 40 mg PO DAILY 08/29/16 [History] Pantoprazole [ProTONIX] 40 mg PO DAILY 09/19/18 [History] LORazepam [Ativan] 0.5 mg PO BID PRN 09/20/18 [History] Sertraline [Zoloft] 50 mg PO DAILY 09/20/18 [History] Dicyclomine [Bentyl] 10 mg PO TID PRN #10 cap 09/22/18 [Rx] Saccharomyces Boulardii [Florastor] 250 mg PO BID #30 cap 09/22/18 [Rx] metroNIDAZOLE [Flagyl] 500 mg PO Q8H #6 tablet 09/22/18 [Rx] Oxygen Therapy Mode: Room Air Patient Handouts: Ischemic Colitis, Gastrointestinal Bleeding Forms: ED Department Discharge Referrals: Rina Park MD [Primary Care Provider] - 10/07/18 (call to schedule an appointment within 2 weeks to schedule a hospital follow up appointment--after following up with Dr. Reed) Brody Reed MD [Physician] - 09/30/18 (Call to schedule appointment with Dr. Reed for hospital follow up to discuss having a colonoscopy.) - Discharge Summary/Plan Comment DC Time >30 min.: No Discharge Summary/Plan Comment: Acute GI bleed -Reports abdominal pain and diarrhea transitioning to BRBPR beginning at 0730 on 09/19/18 -Hx/o AZ and on daily ASA and plavix -Reports last colonoscopy around 2014 with single non-cancerous polyp -No hx/o hemorrhoids, diverticulosis or intestinal malignancy -Hgb 14.1 -Hct 43.3 -PT 11.5; INR 1.06; APTT 24 -CT scan in ED on 09/19/18: * 1. Bowel wall thickening within the splenic flexure and within portions of the descending colon compatible with nonspecific colitis. * 2. Fatty infiltration within the liver. * 3. Moderately large hiatal hernia with gastroesophageal reflux of contrast * 4. Other incidental findings. -Sigmoidoscopy performed in ED * Advanced up to 16 cm * Only dried blood and some mucous above this level * No apparent internal hemorrhoids, masses, polyps, or anal fissures -NPO -> advance to clear liquid diet -Dr. Reed, general surgeon consulted Colitis -Reports abdominal pain and diarrhea as above -CT results as above -NPO for now -WBC 12.57-->13.25 -CRP 0.3-->1.5 -Metronidazole Q8 started in ED - continue -Rocephin 1gm Q24 -Probiotic -Sigmoidoscopy performed in ED as above -Dr. Reed consult as above -Concerns for ischemic colitis -Recommends continuing plavix -H. pylori negative -C. diff negative -Few WBCs in stool study -Stool culture pending -Fecal lactoferrin pending -Blood cultures pending -Bentyl for abdominal cramps -Contact isolation Chronic: CAD HLD HTN Hx/o 3 stents placed Last AZ June 2015 with stent in right coronary artery CVA Depression GERD Hypothyroidism Plan: Admit to medical floor on telemetry CM/SW consult Spiritual care consult Other orders as indicated above Routine AM labs Home medications as ordered She is independently ambulatory so hold off PT/OT for now DVT prophylaxis: SCDs; GI Prophylaxis: Home pepcid Code status: full code; PCP: Dr. Xavier SNOW 24-48 hours, monitor diet; will need GI/Gen surg follow up for elective colonoscopy - General Info Date of Service: 09/19/18 Functional Status: Reports: Pain Controlled, Tolerating Diet, Ambulating, Urinating - Review of Systems General: Reports: No Symptoms HEENT: Reports: No Symptoms Pulmonary: Reports: No Symptoms Cardiovascular: Reports: No Symptoms Gastrointestinal: Reports: No Symptoms Genitourinary: Reports: No Symptoms Musculoskeletal: Reports: No Symptoms Skin: Reports: No Symptoms Neurological: Reports: No Symptoms Psychiatric: Reports: No Symptoms - Patient Data Vitals - Most Recent: Last Vital Signs Temp 36.6 C 09/22/18 08:42 Pulse 63 09/22/18 09:55 Resp 18 09/22/18 08:42 BP 133/76 09/22/18 09:55 Pulse Ox 98 09/22/18 08:42 Orthostatic Blood Pressure [ 110/70 Standing] Orthostatic Blood Pressure [ 102/86 Sitting] Orthostatic Blood Pressure [ 139/79 Supine] Weight - Most Recent: 68.356 kg I&O - Last 24 hours: Intake & Output 09/21/18 09/22/18 09/22/18 22:59 06:59 14:59 Intake Total 2420 1850 250 Balance 2420 1850 250 Lab Results - Last 24 hrs: Laboratory Results - last 24 hr 09/22/18 09/22/18 Range/Units 05:50 05:50 WBC 9.80 (3.98-10.04) K/mm3 RBC 4.05 (3.98-5.22) M/mm3 Hgb 11.4 (11.2-15.7) gm/L Hct 35.6 (34.1-44.9) % MCV 87.9 (79.4-94.8) fl MCH 28.1 (25.6-32.2) pg MCHC 32.0 L (32.2-35.5) g/dl RDW Std Deviation 43.7 (36.4-46.3) fL Plt Count 256 (182-369) K/mm3 MPV 9.5 (9.4-12.3) fl Neut % (Auto) 52.2 (34.0-71.1) % Lymph % (Auto) 34.8 (19.3-51.7) % [place] % (Auto) 7.8 (4.7-12.5) % Eos % (Auto) 4.6 (0.7-5.8) Baso % (Auto) 0.5 (0.1-1.2) % Neut # (Auto) 5.12 (1.56-6.13) K/mm3 Lymph # (Auto) 3.41 (1.18-3.74) K/mm3 [place] # (Auto) 0.76 H (0.24-0.36) K/mm3 Eos # (Auto) 0.45 H (0.04-0.36) K/mm3 Baso # (Auto) 0.05 (0.01-0.08) K/mm3 Sodium 139 (136-145) mEq/L Potassium 4.5 (3.5-5.1) mEq/L Chloride 108 H (98-107) mEq/L Carbon Dioxide 23 (21-32) mEq/L Anion Gap 12.5 (5-15) BUN 3 L (7-18) mg/dL Creatinine 0.8 (0.55-1.02) mg/dL Est Cr Clr Drug Dosing 56.45 mL/min Estimated GFR (MDRD) > 60 (>60) mL/min BUN/Creatinine Ratio 3.8 L (14-18) Glucose 117 H (80-115) mg/dL Calcium 8.1 L (8.5-10.1) mg/dL Magnesium 2.1 (1.8-2.4) mg/dl C-Reactive Protein 1.4 H* (<1.0) mg/dL CHRISTIAN Results - Last 24 hrs: Microbiology 09/19/18 20:45 Stool Culture - Preliminary Stool / Feces Shiga Toxin I - Final NEGATIVE FOR SHIGA TOXIN 1 Shiga Toxin II - Final NEGATIVE FOR SHIGA TOXIN 2 09/19/18 21:50 Aerobic Blood Culture - Preliminary Blood - Venous - Lab Draw NO GROWTH AFTER 2 DAYS Anaerobic Blood Culture - Preliminary NO GROWTH AFTER 2 DAYS 09/19/18 21:45 Aerobic Blood Culture - Preliminary Blood - Venous NO GROWTH AFTER 2 DAYS Anaerobic Blood Culture - Preliminary NO GROWTH AFTER 2 DAYS 09/19/18 20:45 Stool Lactoferrin - Final Stool / Feces Med Orders - Current: Current Medications Acetaminophen (Tylenol) 650 mg PO Q4H PRN PRN Reason: Pain (Mild 1-3)/fever Acetaminophen/Butalbital/Caffeine (Fioricet 325-50-40 Mg) 1 tab PO Q6H PRN PRN Reason: Headache Albuterol/Ipratropium (Duoneb 3.0-0.5 Mg/3 Ml) 3 ml NEB Q4H PRN PRN Reason: Shortness Of Breath/wheezing Carvedilol (Coreg) 3.125 mg PO BID [facility] Last Admin: 09/22/18 09:55 Dose: 3.125 mg Clopidogrel Bisulfate (Plavix) 75 mg PO DAILY [facility] Last Admin: 09/22/18 09:55 Dose: 75 mg Dicyclomine HCl (Bentyl) 10 mg PO Q6H PRN PRN Reason: Abdominal Cramps Last Admin: 09/21/18 16:26 Dose: 10 mg Ezetimibe (Zetia) 10 mg PO DAILY [facility] Last Admin: 09/22/18 09:55 Dose: 10 mg Famotidine (Pepcid) 20 mg PO BID [facility] Last Admin: 09/22/18 09:55 Dose: 20 mg Hydralazine HCl (Apresoline) 20 mg IVPUSH Q4H PRN PRN Reason: Hypertension Hydromorphone HCl (Dilaudid) 0.5 mg IVPUSH Q2H PRN PRN Reason: Pain (severe 7-10) Metronidazole 500 mg/ Premix 100 mls @ 100 mls/hr IV Q8H [facility] Last Admin: 09/22/18 10:03 Dose: 100 mls/hr Ceftriaxone Sodium 1 gm/ (Sodium Chloride) 100 mls @ 200 mls/hr IV Q24H [facility] Last Admin: 09/21/18 21:27 Dose: 200 mls/hr Levothyroxine Sodium (Levothyroxine) 75 mcg PO ACBREAKFAST [facility] Last Admin: 09/22/18 05:02 Dose: 75 mcg Lorazepam (Ativan) 1 mg IV Q6H PRN PRN Reason: Anxiety Lorazepam (Ativan) 0.5 mg PO BID PRN PRN Reason: ANXIETY Last Admin: 09/21/18 19:59 Dose: 0.5 mg Metoprolol Tartrate (Lopressor) 5 mg IVPUSH Q4H PRN PRN Reason: Tachycardia Nitroglycerin (Nitrostat) 0.4 mg SL ASDIRECTED PRN PRN Reason: Chest Pain Ondansetron HCl (Zofran) 4 mg IV Q6H PRN PRN Reason: Nausea/Vomiting Saccharomyces Boulardii (Florastor) 250 mg PO BID [facility] Last Admin: 09/22/18 09:55 Dose: 250 mg Sertraline HCl (Zoloft) 50 mg PO DAILY [facility] Last Admin: 09/22/18 09:55 Dose: 50 mg Temazepam (Restoril) 15 mg PO BEDTIME PRN PRN Reason: Sleep Last Admin: 09/21/18 21:27 Dose: 15 mg Discontinued Medications Diatrizoate Meglum/Diatrizoate Sod (Gastrografin 37%) 120 ml PO ONETIME ONE Stop: 09/19/18 17:03 Last Admin: 09/19/18 18:01 Dose: 90 ml Dicyclomine HCl (Bentyl) 10 mg PO QIDACANDBED PRN PRN Reason: Abdominal Cramps Last Admin: 09/19/18 22:19 Dose: 10 mg Hydromorphone HCl (Dilaudid) 0.5 mg IVPUSH ONETIME ONE Stop: 09/19/18 16:11 Last Admin: 09/19/18 16:17 Dose: 0.5 mg Hydromorphone HCl (Dilaudid) 0.5 mg IVPUSH Q2H PRN PRN Reason: Pain (severe 7-10) Sodium Chloride (Normal Saline) 1,000 mls @ 200 [facility]ls[facility] Last Admin: 09/19/18 20:28 Dose: 200 mls/hr Metronidazole 500 mg/ Premix 100 mls @ 100 mls/hr IV ONETIME ONE Stop: 09/19/18 20:00 Last Admin: 09/19/18 19:10 Dose: 100 mls/hr Ceftriaxone Sodium 2 gm/ (Sodium Chloride) 100 mls @ 200 mls/hr IV ONETIME ONE Stop: 09/19/18 21:53 Last Admin: 09/19/18 23:01 Dose: 200 mls/hr Potassium Chloride/Dextrose/Sod Cl (D5 Ns With 40 Meq Kcl) 1,000 mls @ 125 mls/ [facility] Last Admin: 09/22/18 01:33 Dose: 125 mls/hr Magnesium Sulfate 2 gm/ Premix 50 mls @ 25 mls/hr IV ONETIME ONE Stop: 09/19/18 23:25 Last Admin: 09/19/18 22:20 Dose: 25 mls/hr Magnesium Sulfate 2 gm/ Premix 50 mls @ 25 mls/hr IV ONETIME ONE Stop: 09/21/18 17:31 Last Admin: 09/21/18 16:15 Dose: 25 mls/hr Iopamidol (Isovue-370 (76%)) 100 ml IV ONETIME ONE Stop: 09/19/18 17:03 Last Admin: 09/19/18 18:01 Dose: 100 ml Lidocaine HCl (Xylocaine 2% Jelly) 10 ml MUCMEM ONETIME ONE Stop: 09/19/18 16:12 Last Admin: 09/19/18 16:19 Dose: 10 ml Magnesium Sulfate (Pharmacy To Dose - Magnesium Replacement) 0 dose .XX ASDIRECTED PRN PRN Reason: RX TO WATCH MAG Ondansetron HCl (Zofran) 4 mg IVPUSH ONETIME ONE Stop: 09/19/18 15:56 Last Admin: 09/19/18 16:16 Dose: 4 mg Potassium Chloride (Pharmacy To Dose - Potassium Replacement) 0 dose .XX ASDIRECTED PRN PRN Reason: RX TO WATCH K Potassium Chloride (Klor-Con M20) 40 meq PO ONETIME ONE Stop: 09/19/18 23:46 Last Admin: 09/19/18 23:49 Dose: 40 meq Scopolamine (Transderm-Scop) 1.5 mg TRDERM Q72H ONE Stop: 09/19/18 21:20 Last Admin: 09/19/18 22:19 Dose: 1.5 mg - Exam Quality Assessment: Reports: DVT Prophylaxis General: Reports: Alert, Oriented, Cooperative, No Acute Distress HEENT: Reports: Pupils Equal, Pupils Reactive, EOMI Neck: Reports: Trachea Midline, No JVD Lungs: Reports: Clear to Auscultation, Normal Respiratory Effort Cardiovascular: Reports: Regular Rate, Regular Rhythm GI/Abdominal Exam: Normal Bowel Sounds, Soft, Non-Tender, No Organomegaly, No Distention (Female) Exam: Deferred Rectal (Female) Exam: Deferred Back Exam: Reports: Normal Inspection Extremities: Normal Inspection, Non-Tender, Normal Capillary Refill Skin: Reports: Warm Neurological: Reports: No New Focal Deficit, Normal Gait, Normal Speech Psy/Mental Status: Reports: Alert, Normal Affect, Normal Mood
[2018-09-22] MEDS ORDERED: cefTRIAXone 1 GM in Sodium Chloride 0.9% 100 ML IV ONE (13:00)
[2018-09-22] MEDS ORDERED: metroNIDAZOLE 500 MG Tab PO SCH (14:00)
[2018-09-22 14:59] VITALS: BP 142/68
--- NOTE | 2018-09-23 07:24 | CONS ---
CONSULTING PHYSICIAN: Brody Reed MD DATE OF CONSULTATION: 09/20/2018 HISTORY OF PRESENT ILLNESS: This is a 68-year-old female who came into the emergency room with diarrhea every half hour associated with diffuse abdominal cramps with bright red bleeding. She is feeling better now and has had only 1 blood tinged stool cramps or less, feeling well-being, and hunger is returning. She has a workup in the emergency room. A CT scan is showing a large hiatal hernia and some edema around the descending colon and around the splenic flexure. The patient states that she has colitis, although it was never diagnosed with ulcerative colitis or Crohn disease. The patient also had significant myocardial infarction last year and has had stents and is on Plavix. The myocardial infarction correction was 3 years ago and her last colonoscopy was 5 years ago when her polyp was removed. MEDICATIONS: Per medication reconciliation form. REVIEW OF SYSTEMS: No chest pain, shortness of breath, cough, hoarseness, wheezing, fainting, weakness, numbness, convulsions, nausea, vomiting, indigestion, or gas pains. No hemopoietic, hematological, dermatological problems. No neurological problems. Had history of CVA in the distant past. PAST MEDICAL HISTORY: Coronary artery disease. FAMILY HISTORY: Really negative. PHYSICAL EXAMINATION: GENERAL: Reveals an alert, cooperative female. HEENT: Eyes: Sclerae white. Extraocular muscle motion normal. Oral cavity: Healthy mucous membrane with mouth and tongue. NECK: Supple. No nodes. No thyromegaly. Trachea midline. LUNGS: Clear. No rales, rhonchi, fremitus, dullness. HEART: Heart tones regular rate. No S3, S4, jugular venous distention. ABDOMEN: Mild tenderness over the left upper and left lower quadrant. No guarding or rebound. LOWER EXTREMITIES: Unremarkable. PSYCHIATRIC: Normal. SKIN: Warm and dry. NEUROLOGICAL: No sensorineural deficit. Moves all 4 extremities. ASSESSMENT: Colitis, suspect with her cardiac history. Presumption was that it is ischemic colitis, but ulcerative colitis is possible. Stool cultures suggest that it is not infectious. I have talked about discussion, the benefit of colonoscopy. The patient really at this moment does not want one and would treat her presumptively with ischemic colitis and continue her Plavix and watch her. MMODAL /[id number]
== END 2018-09-22 14:59 | disposition home or self-care (01) | DRG 378 ==
LOC: JD.ED 14:22 → JD.MS 19:08
PROVIDERS: ADMIT Internal Medicine; ATTEND Internal Medicine
PROC: 0DJD8ZZ Inspection of Lower Intestinal Tract, Via Natural or Artificial Opening Endoscopic (ICD-10-PCS; principal; 2018-09-19)
DX: K62.5 Hemorrhage of anus and rectum (principal); K52.9 Noninfective gastroenteritis and colitis, unspecified; K55.9 Vascular disorder of intestine, unspecified; I25.10 Atherosclerotic heart disease of native coronary artery without angina pectoris; E78.00 Pure hypercholesterolemia, unspecified; I10 Essential (primary) hypertension; F32.9 Major depressive disorder, single episode, unspecified; E03.9 Hypothyroidism, unspecified; K44.9 Diaphragmatic hernia without obstruction or gangrene; E78.5 Hyperlipidemia, unspecified; K21.9 Gastro-esophageal reflux disease without esophagitis; H54.7 Unspecified visual loss; F41.9 Anxiety disorder, unspecified; I25.2 Old myocardial infarction; Z79.02 Long term (current) use of antithrombotics/antiplatelets; Z79.82 Long term (current) use of aspirin; R53.81 Other malaise; R53.83 Other fatigue; R06.02 Shortness of breath; R06.00 Dyspnea, unspecified; R42 Dizziness and giddiness; R10.84 Generalized abdominal pain; R19.7 Diarrhea, unspecified; R53.1 Weakness; R11.0 Nausea; Z79.899 Other long term (current) drug therapy; Z86.010 Personal history of colon polyps; Z88.8 Allergy status to other drugs, medicaments and biological substances; Z79.890 Hormone replacement therapy; Z95.5 Presence of coronary angioplasty implant and graft; Z86.73 Personal history of transient ischemic attack (TIA), and cerebral infarction without residual deficits
CPT/HCPCS: 36415; 45300; 74177; 80053; 82150; 83735; 83880; 85007; 85027; 85610; 85730; 86140; 86677; 86850; 86900; 86901; 93005; 96361; 96375; 99285; J1170; J2405; J7040; Q9963; Q9967; 80048; 83630; 85025; 87040; 87046; 87427; 87493; 89055; 93010; 96365; 99284; A9270-GY; J0696; J3475; J3480; J3490; J7030

== ENCOUNTER 2023-10-17 13:23 | Emergency (ER) | payer MEDICARE, BC ==
[2023-10-17] MEDS: Ketorolac 30 MG/ML SDV IVPUSH ONE (14:45)
[2023-10-17] MEDS: diphenhydrAMINE 50 MG/ML SDV IVPUSH ONE (14:49)
[2023-10-17] MEDS: Metoclopramide 10 MG/2 ML SDV IVPUSH ONE (14:53)
[2023-10-17 15:17] LABS: BASOPHILS ABSOLUTE AUTO 0.1 K/mm3 (0.0-0.2); BASOPHILS PERCENT AUTO 0.7 % (0.0-1.0); EOSINOPHILS ABSOLUTE AUTO 0.2 K/mm3 (0.0-0.4); EOSINOPHILS PERCENT AUTO 1.4 % (0.0-6.0); HEMATOCRIT 40.9 % (37.0-47.0); HEMOGLOBIN 13.6 gm/dl (12.0-16.0); IMMATURE GRAN ABSOLUTE AUTO 0.05 K/mm3 (0.00-0.05); IMMATURE GRAN PERCENT AUTO 0.3 % (0.0-0.4); LYMPHOCYTES ABSOLUTE AUTO 4.7 K/mm3 (1.0-4.8); LYMPHOCYTES PERCENT AUTO 30.4 % (24.0-44.0); MEAN CORPUSCULAR HEMOGLOBIN 28.7 pg (28.0-32.0); MEAN CORPUSCULAR HGB CONC 33.3 g/dl (32.0-36.0); MEAN CORPUSCULAR VOLUME 86.3 fl (83.0-99.0); MEAN PLATELET VOLUME 8.7 fl (9.4-12.3); MONOCYTES PERCENT AUTO 6.3 % (0.0-8.0); NEUTROPHILS ABSOLUTE AUTO 9.3 K/mm3 (1.8-7.7); NEUTROPHILS PERCENT AUTO 60.9 % (41.0-71.0); PLATELET COUNT,PLT 347 K/mm3 (150-400); RED BLOOD CELL COUNT 4.74 M/mm3 (4.10-5.30); WHITE BLOOD CELL COUNT,WBC 15.33 K/mm3 (3.9-11.3)
[2023-10-17 15:30] LABS: INR 1.11; PROTHROMBIN TIME 11.8 SECONDS (9.7-12.0); PTT,PARTIAL THROMBOPLSTIN TIME 23.8 SECONDS (21.7-31.4)
[2023-10-17] MEDS: Sodium Chloride 0.9% 10 ML Syringe FLUSH PRN (15:33)
[2023-10-17 15:39] LABS: A/G RATIO 0.9 (1-2); ALBUMIN 3.3 g/dl (3.4-5.0); BILIRUBIN TOTAL 0.6 mg/dL (0.2-1.0); BUN/CREATININE RATIO 20.9 (14-18); CALCIUM 8.8 mg/dL (8.5-10.1); CREATININE 1.1 mg/dL (0.55-1.02); EST CRCL DRUG DOSING (CG) 38.24 mL/min; PROTEIN TOTAL,TP 6.8 g/dl (6.4-8.2)
[2023-10-17 18:04] VITALS: BP 106/84; PULSE 68
== END 2023-10-17 17:03 | disposition home or self-care (01) ==
LOC: JD.ED 13:23
DX: R51.9 Headache, unspecified (principal); I10 Essential (primary) hypertension; I25.10 Atherosclerotic heart disease of native coronary artery without angina pectoris; E78.00 Pure hypercholesterolemia, unspecified; I25.2 Old myocardial infarction; E03.9 Hypothyroidism, unspecified; Z88.1 Allergy status to other antibiotic agents; Z88.8 Allergy status to other drugs, medicaments and biological substances; Z79.899 Other long term (current) drug therapy; Z79.02 Long term (current) use of antithrombotics/antiplatelets; Z86.73 Personal history of transient ischemic attack (TIA), and cerebral infarction without residual deficits; Z95.5 Presence of coronary angioplasty implant and graft
CPT/HCPCS: 36415; 70450; 71045; 80053; 85025; 85610; 85730; 96374; 96375; 99284; J1200; J1885; J2765; J3490

== ENCOUNTER 2024-11-26 12:23 | Emergency (ER) | payer MEDICARE, BC ==
[2024-11-26 12:41] VITALS: BP 148/85; PULSE 60
[2024-11-26 13:01] LABS: BASOPHILS ABSOLUTE AUTO 0.1 K/mm3 (0.0-0.2); EOSINOPHILS ABSOLUTE AUTO 0.4 K/mm3 (0.0-0.4); EOSINOPHILS PERCENT AUTO 3.6 % (0.0-6.0); HEMATOCRIT 39.6 % (37.0-47.0); HEMOGLOBIN 13.2 gm/dl (12.0-16.0); IMMATURE GRAN ABSOLUTE AUTO 0.04 K/mm3 (0.00-0.05); IMMATURE GRAN PERCENT AUTO 0.4 % (0.0-0.4); LYMPHOCYTES ABSOLUTE AUTO 3.9 K/mm3 (1.0-4.8); LYMPHOCYTES PERCENT AUTO 35.6 % (24.0-44.0); MEAN CORPUSCULAR HGB CONC 33.3 g/dl (32.0-36.0); MEAN PLATELET VOLUME 8.6 fl (9.4-12.3); MONOCYTES ABSOLUTE AUTO 0.7 K/mm3 (0.0-0.8); MONOCYTES PERCENT AUTO 6.3 % (0.0-8.0); NEUTROPHILS ABSOLUTE AUTO 5.7 K/mm3 (1.8-7.7); NEUTROPHILS PERCENT AUTO 53.1 % (41.0-71.0); RED BLOOD CELL COUNT 4.55 M/mm3 (4.10-5.30)
[2024-11-26 13:05] LABS: PLATELET COUNT,PLT 250 K/mm3 (150-400)
[2024-11-26 13:14] LABS: A/G RATIO 0.9 (1-2); ALBUMIN 3.4 g/dl (3.4-5.0); ANION GAP 15.1 (5-15); BILIRUBIN TOTAL 0.4 mg/dL (0.2-1.0); CALCIUM 8.8 mg/dL (8.5-10.1); EST CRCL DRUG DOSING (CG) 42.36 mL/min; POTASSIUM,K 4.1 mEq/L (3.5-5.1); PROTEIN TOTAL,TP 7.4 g/dl (6.4-8.2)
[2024-11-26] MEDS: Iopamidol 755 Mg/ML 100 ML Bottle IVPUSH ONE (15:06)
[2024-11-26] MEDS: Sodium Chloride 0.9% 10 ML Syringe FLUSH PRN (15:06)
[2024-11-26] MEDS: Sodium Chloride 0.9% 100 ML IV SCH (15:06)
[2024-11-26] MEDS: Heparin Sodium 5,000 Units/ML Vial IVPUSH ONE (16:22)
[2024-11-26] MEDS: Aspirin 81 MG Tab.Chew PO ONE (16:23)
[2024-11-26] MEDS: Heparin Sodium/D5W 250 ML IV SCH (16:23)
== END 2024-11-26 17:15 ==
LOC: JD.ED 12:23
DX: I21.4 Non-ST elevation (NSTEMI) myocardial infarction (principal); I25.10 Atherosclerotic heart disease of native coronary artery without angina pectoris; I10 Essential (primary) hypertension; E78.00 Pure hypercholesterolemia, unspecified; E03.9 Hypothyroidism, unspecified; Z86.73 Personal history of transient ischemic attack (TIA), and cerebral infarction without residual deficits; Z88.8 Allergy status to other drugs, medicaments and biological substances; Z79.890 Hormone replacement therapy; Z79.899 Other long term (current) drug therapy
CPT/HCPCS: 36415; 71045; 71045-26; 71275; 71275-26; 80053; 83735; 84484; 85025; 85730; 93005; 93010; 96365; 99285; 99285-25; A9270-GY; J1644; Q9967